=== PATIENT | male | born 1950 | race Caucasian/White ===

== ENCOUNTER 2018-06-09 14:01 | Outpatient (CLI) | payer MEDICARE, MEDICAID ==
[2018-06-09 18:39] LABS: BASOPHILS # (AUTO) 0.1 10^3/uL (0.0-0.1); BASOPHILS % (AUTO) 0.9 %; EOSINOPHILS # (AUTO) 0.3 10^3/uL (0.0-0.7); EOSINOPHILS % (AUTO) 3.8 %; HGB - HEMOGLOBIN 15.3 g/dL (14.0-18.0); LYMPHOCYTES # (AUTO) 1.4 10^3/uL (1.5-3.5); LYMPHOCYTES % (AUTO) 16.7 %; MEAN CORPUSCULAR HEMOGLOBIN 31.8 pg (27.0-31.0); MEAN CORPUSCULAR HGB CONC 33.5 g/dL (32.0-36.0); MEAN CORPUSCULAR VOLUME 95.1 fL (80.0-94.0); MEAN PLATELET VOLUME 8.5 fL (7.4-11.4); MONOCYTES # (AUTO) 0.7 10^3/uL (0.0-1.0); MONOCYTES % (AUTO) 8.3 %; NEUTROPHILS # (AUTO) 5.8 10^3/uL (1.5-6.6); NEUTROPHILS % (AUTO) 70.3 %; PLT - PLATELET COUNT 226 10^3/uL (130-450); RED BLOOD COUNT 4.81 10^6/uL (4.70-6.10); RED CELL DISTRIBUTION WIDTH 13.2 % (12.0-15.0); WHITE BLOOD COUNT 8.3 x10^3/uL (4.8-10.8)
[2018-06-09 18:42] LABS: BILIRUBIN,URINE NEGATIVE (NEGATIVE); GLUCOSE, URINE (UA) NEGATIVE (NEGATIVE); KETONES,URINE (UA) NEGATIVE (NEGATIVE); LEUKOCYTE ESTERASE, URINE TRACE (NEGATIVE); NITRITE,URINE NEGATIVE (NEGATIVE); OCCULT BLOOD,URINE NEGATIVE (NEGATIVE); PROTEIN,URINE NEGATIVE (NEGATIVE); UROBILINOGEN,URINE 0.2 (NORMAL) E.U./dL (NORMAL)
[2018-06-09 18:51] LABS: HB2 TOTAL 16.6 g/dL; HEMOGLOBIN A1C 0.59 g/dL; HEMOGLOBIN A1C % 5.4 % (4.6-6.2)
[2018-06-09 18:55] LABS: CLARITY,URINE CLEAR (CLEAR)
[2018-06-09 18:56] LABS: % IRON SATURATION 22 % (20-50); ALBUMIN 3.9 g/dL (3.2-5.5); ALBUMIN/GLOBULIN RATIO 1.3 (1.0-2.2); ALKALINE PHOSPHATASE 67 IU/L (42-121); ALT ALANINE AMINOTRANSFERASE 23 IU/L (10-60); AST ASPARTATE AMINOTRANSFERASE 24 IU/L (10-42); BACTERIA,URINE None Seen /HPF (None Seen); BILIRUBIN,TOTAL 0.7 mg/dL (0.2-1.0); BUN - BLOOD UREA NITROGEN 25 mg/dL (6-20); CALCIUM 9.1 mg/dL (8.5-10.3); CARBON DIOXIDE - CO2 24 mmol/L (21-32); CHLORIDE 102 mmol/L (101-111); CHOL/HDL RATIO 3.9 (<5.0); CHOLESTEROL 190 mg/dL; GFR - MDRD 74 (>89); GLUCOSE 141 mg/dL (70-100); HDL CHOLESTEROL 49 mg/dL; IRON 69 ug/dL (45-182); LDL CHOLESTEROL,CALCULATED 83 mg/dL; LDL/HDL RATIO 1.7 (<3.6); RBC,URINE None Seen /HPF (0-5); SODIUM 133 mmol/L (135-145); SQUAMOUS EPITHELIAL CELL,UR NONE SEEN (<= Few); TOTAL IRON BINDING CAPACITY 318 ug/dL (250-450); TOTAL PROTEIN 6.9 g/dL (6.7-8.2); TRANSFERRIN 227 mg/dL (180-329); VLDL CHOLESTEROL 58 mg/dL
== END 2018-06-09 14:02 | disposition home or self-care (01) ==
LOC: LAB.F 14:01
PROVIDERS: ATTEND Nurse Practitioner
DX: I10 Essential (primary) hypertension (principal); Z13.89 Encounter for screening for other disorder; R31.9 Hematuria, unspecified; R53.83 Other fatigue; N40.1 Benign prostatic hyperplasia with lower urinary tract symptoms; Z13.1 Encounter for screening for diabetes mellitus; Z79.899 Other long term (current) drug therapy
CPT/HCPCS: 36415; 80053; 80061; 81001; 81599; 82306; 82607; 83036; 83540; 83721; 84153; 84466; 85025

== ENCOUNTER 2019-01-25 11:00 | Outpatient (CLI) | payer MEDICARE, MEDICAID | END 2019-01-25 23:59 | disposition home or self-care (01) | LOC: LAB.R 11:00 | PROVIDERS: ATTEND Internal Medicine | DX: N30.00 Acute cystitis without hematuria (principal) | CPT/HCPCS: 87086 ==

== ENCOUNTER 2020-01-10 14:01 | Outpatient (CLI) | payer MEDICARE, MEDICAID ==
[2020-01-10 20:31] LABS: BASOPHILS # (AUTO) 0.1 10^3/uL (0.0-0.1); BASOPHILS % (AUTO) 0.8 %; EOSINOPHILS # (AUTO) 0.3 10^3/uL (0.0-0.7); EOSINOPHILS % (AUTO) 4.2 %; LYMPHOCYTES # (AUTO) 1.8 10^3/uL (1.5-3.5); LYMPHOCYTES % (AUTO) 22.7 %; MEAN CORPUSCULAR HEMOGLOBIN 31.1 pg (27.0-31.0); MEAN CORPUSCULAR HGB CONC 31.9 g/dL (32.0-36.0); MEAN CORPUSCULAR VOLUME 97.5 fL (80.0-94.0); MEAN PLATELET VOLUME 10.3 fL (7.4-11.4); MONOCYTES # (AUTO) 0.7 10^3/uL (0.0-1.0); MONOCYTES % (AUTO) 8.8 %; PLT - PLATELET COUNT 233 10^3/uL (130-450); RED BLOOD COUNT 4.82 10^6/uL (4.70-6.10); RED CELL DISTRIBUTION WIDTH 12.8 % (12.0-15.0); WHITE BLOOD COUNT 7.9 x10^3/uL (4.8-10.8)
== END 2020-01-10 14:02 | disposition home or self-care (01) ==
LOC: LAB.S 14:01
PROVIDERS: ATTEND Internal Medicine
DX: N41.9 Inflammatory disease of prostate, unspecified (principal); R31.9 Hematuria, unspecified
CPT/HCPCS: 36415; 84153; 85025

== ENCOUNTER 2020-02-01 10:08 | Outpatient (CLI) | payer MEDICARE, MEDICAID | END 2020-02-01 10:09 | disposition home or self-care (01) | LOC: LAB.S 10:08 | PROVIDERS: ATTEND Internal Medicine | DX: N41.9 Inflammatory disease of prostate, unspecified (principal) | CPT/HCPCS: 36415; 84153 ==

== ENCOUNTER 2020-03-06 10:57 | Outpatient (CLI) | payer MEDICARE, MEDICAID ==
[2020-03-06] MEDS ORDERED: IOVERSOL 320 100 ML VIAL IVP ONE ×2 (11:13→12:19)
--- NOTE | 2020-03-06 15:11 | CT Report ---
PROCEDURE: IVP INDICATIONS: HEMATURIA CONTRAST: IV CONTRAST: Optiray 320 ml: 140 PO CONTRAST: *NO PO CONTRAST TECHNIQUE: After the administration of intravenous contrast, 5 mm thick sections acquired from the diaphragms to the symphysis. 5 mm thick coronal and sagittal reformats were acquired. For radiation dose reducti on, the following was used: automated exposure control, adjustment of mA and/or kV according to oscar ent size. COMPARISON: None. FINDINGS: Image quality: Excellent. Lung bases: Lung bases are clear. Heart size is normal. Urinary system: Both kidneys are normal in size and enhancement. Multiple benign bilateral renal cy sts. Findings include a 2 separate hyperdense left renal cyst. Contrast-filled renal calyces are norm al in morphology. Contrast filled portions of both ureters are normal in caliber. Bladder is quite d istended. Mild bladder wall thickening. Markedly enlarged, multinodular prostate, with the basilar im pression on the bladder. Solid organs: Liver and spleen are normal in size and enhancement. Gallbladder is unremarkable. Bi liary system is non dilated. Pancreas enhances normally. No adrenal nodules. Peritoneum and bowel: Bowel loops demonstrate normal wall thickness and caliber. No free fluid or a ir. Nodes and vessels: No retroperitoneal or mesenteric adenopathy by size criteria. Marked enlargement of the infrarenal abdominal aorta, with an aneurysm measuring 8.5 x 7.7 cm, with large associated thr ombus. SMA and celiac are patent. RYAN is probably patent. There is a short neck between the lowest re nal artery and the aneurysm. Abdominal wall: No ventral hernias. Pelvis: No pathologic free pelvic fluid. Right inguinal hernia containing fat. No inguinal adenopath y. Bones: No suspicious bony lesions. No vertebral body compression fractures. Bilateral L5 pars defec ts. Grade 1 anterolisthesis of L5 on S1. Severe bilateral L5-S1 foraminal narrowing. Canal stenosis a t L3-L4 and L4-L5. IMPRESSION: 1. Markedly enlarged, surgical size aortic aneurysm, measuring 8.5 cm maximum diameter. This aneurysm may be treatable by an endovascular. Recommend vascular surgical consultation. 2. No findings suspicious for malignancy. No renal stones or ureteral stones or hydronephrosis. 3. Markedly enlarged prostate with extensive nodularity, resulting in bladder outlet obstruction, sara dder distention, and mild bladder wall thickening. Reviewed by: Amari Wright MD on 03/06/2020 3:10 PM PST Approved by: Amari Wright MD on 03/06/2020 3:10 PM PST Station ID: [id number]
== END 2020-03-06 10:58 | disposition home or self-care (01) ==
LOC: DI 10:57
PROVIDERS: ATTEND Internal Medicine
DX: I71.4 Abdominal aortic aneurysm, without rupture (principal); N40.0 Benign prostatic hyperplasia without lower urinary tract symptoms; N40.2 Nodular prostate without lower urinary tract symptoms; R31.9 Hematuria, unspecified
CPT/HCPCS: 74178; Q9967; 36415; 80048

== ENCOUNTER 2020-03-06 11:27 | Outpatient (CLI) | payer MEDICARE, MEDICAID ==
[2020-03-06 11:57] LABS: CALCIUM 9.6 mg/dL (8.5-10.3); CREATININE 1.2 mg/dL (0.6-1.2)
== END 2020-03-06 11:28 | disposition home or self-care (01) ==
LOC: LAB 11:27
PROVIDERS: ATTEND Internal Medicine
DX: R31.9 Hematuria, unspecified (principal)
CPT/HCPCS: 36415; 80048

== ENCOUNTER 2020-04-30 16:39 | Outpatient (CLI) | payer MEDICARE, MEDICAID ==
[2020-04-30 19:48] LABS: BASOPHILS % (AUTO) 0.1 %; MEAN CORPUSCULAR HEMOGLOBIN 31.9 pg (27.0-31.0); MEAN CORPUSCULAR HGB CONC 33.3 g/dL (32.0-36.0); MEAN CORPUSCULAR VOLUME 95.6 fL (80.0-94.0); MEAN PLATELET VOLUME 9.2 fL (7.4-11.4); MONOCYTES % (AUTO) 10.4 %; NEUTROPHILS % (AUTO) 77.5 %; PLT - PLATELET COUNT 467 10^3/uL (130-450); RED BLOOD COUNT 2.04 10^6/uL (4.70-6.10); RED CELL DISTRIBUTION WIDTH 13.7 % (12.0-15.0); WHITE BLOOD COUNT 19.2 x10^3/uL (4.8-10.8)
[2020-04-30 20:19] LABS: HCT - HEMATOCRIT 19.5 % (42.0-52.0); HGB - HEMOGLOBIN 6.5 g/dL (14.0-18.0)
[2020-04-30 20:21] LABS: ABNORMAL LYMPHS % (MANUAL) 0 %
[2020-04-30 20:43] LABS: BAND NEUTROPHILS % (MANUAL) 2 %; LYMPHOCYTES # (MANUAL) 2.1 10^3/uL (1.5-3.5); LYMPHOCYTES % (MANUAL) 11 %; MONOCYTES # (MANUAL) 1.2 10^3/uL (0.0-1.0); NEUTROPHILS # (MANUAL) 15.9 10^3/uL (1.5-6.6); PLATELET MORPHOLOGY NORMAL APPEARANCE (NORMAL); RBC MORPHOLOGY (MULTIPLE) 2+ HYPOCHROMASIA (NORMAL)
[2020-04-30 20:44] LABS: DIFFERENTIAL COMMENT MANUAL DIFFERENTIAL; PLATELET ESTIMATE, MANUAL INCREASED (>450,000) (NORMAL)
== END 2020-04-30 16:40 | disposition home or self-care (01) ==
LOC: LAB.S 16:39
PROVIDERS: ATTEND Internal Medicine
DX: R19.5 Other fecal abnormalities (principal)
CPT/HCPCS: 36415; 85025

== ENCOUNTER 2020-04-30 21:26 | Inpatient (IN) | payer MEDICARE, MEDICAID ==
--- NOTE | 2020-04-30 21:31 | ED Physician Documentation ---
PD HPI GI BLEED - Stated complaint Stated Complaint: PRIOR SURGERY LOSS OF BLOOD - History of Present Illness Timing - onset: How many weeks ago (2) Timing - duration: Weeks (2) Timing - details: Abrupt onset (He noted onset of dark stool shortly after an aortic endovascular graft stenting at [facility] 2 and half weeks ago. He has had 2 weeks of dark stool and general weakness. Seen in the office today with a very low blood count and guaiac positive stool.), Still present Associated symptoms: Black/tarry stool, Loss of appetite. No: Vomiting, Coffee ground emesis, Diarrhea, Abdominal pain, Chest pain, Near syncope / syncope Contributing factors: No: Sick contact, Bad food, Aspirin use (but is on Plvix the past 2 1/2 weeks.), NSAID use Improved by: No: Eating Worsened by: No: Eating Similar symptoms before: Has not had sx before Recently seen: Surgery (Outpatient procedure at [facility] by Dr. Wilkins, vascular surgery, with endovascular stent grafting of a abdominal aneurysm without complications.) Review of Systems Constitutional: denies: Fever, Chills Nose: denies: Rhinorrhea / runny nose, Congestion Throat: denies: Sore throat Cardiac: reports: Pedal edema (mild at times). denies: Chest pain / pressure, Palpitations, Calf pain GI: reports: Nausea. denies: Abdominal Pain, Vomiting, Diarrhea : reports: Hesitancy, Unable to Void (initially post procedure, and has had garza in place. Has appt with Urology this ThuMay 02.) Musculoskeletal: denies: Neck pain, Back pain, Extremity swelling Neurologic: reports: Generalized weakness. denies: Focal weakness, Numbness, Near syncope, Altered mental status, Headache PD PAST MEDICAL HISTORY - Past Medical History Cardiovascular: Hypertension, High cholesterol, Other (AAA with recent endovasc ular stent graft) Respiratory: None Neuro: None Endocrine/Autoimmune: None - Past Surgical History Cardiovascular: AAA - Allergies Allergies/Adverse Reactions: Allergies Allergy/AdvReac Type Severity Reaction Status Date / Time No Known Drug Allergies Allergy Verified 04/30/20 22:33 - Living Situation Living Situation: reports: With spouse/s.o. Living Arrangement: reports: At home PD ED PE NORMAL - Vitals Vital signs reviewed: Yes - General General: Alert and oriented X 3, Well developed/nourished, Other (no distress. Pale color. ) - HEENT HEENT: Pharynx benign. No: Moist mucous membranes - Neck Neck: Supple, no meningeal sign, No adenopathy - Cardiac Cardiac: RRR, No murmur - Respiratory Respiratory: Clear bilaterally - Abdomen Abdomen: Normal bowel sounds, Soft, Non distended, No organomegaly, Other (inguinal areas bilaterally with bandaging. No bruising, local swelling, nor redness. ) - Male Male : Other (garza in place to leg bag/ appears draining okay. ) - Back Back: No CVA TTP - Derm Derm: No: Normal color - Extremities Extremities: No tenderness to palpate, Normal ROM s pain, No edema, No calf tenderness / cord - Neuro Neuro: Alert and oriented X 3, No motor deficit, Normal speech Eye Opening: Spontaneous Motor: Obeys Commands Verbal: Oriented GCS Score: 15 Results - Vitals Vitals: Vital Signs - 24 hr 04/30/20 04/30/20 04/30/20 21:33 23:25 23:35 Temperature 36.5 C 37.2 C 37.1 C Heart Rate 88 78 80 Respiratory 18 16 16 Rate Blood Pressure 109/51 L 117/60 120/56 L O2 Saturation 99 04/30/20 23:44 Temperature 37.0 C Heart Rate 80 Respiratory 16 Rate Blood Pressure 114/70 O2 Saturation Oxygen O2 Source Room air - Labs Labs: Laboratory Tests 04/30/20 04/30/20 04/30/20 16:45 22:06 22:06 WBC 15.2 H RBC 1.97 L Hgb 6.1 L* Hct 18.5 L* MCV 93.9 MCH 31.0 MCHC 33.0 RDW 13.7 Plt Count 336 MPV 8.4 Neut # (Auto) 12.8 H Lymph # (Auto) 1.1 L Cloud # (Auto) 1.1 H Eos # (Auto) 0.0 Baso # (Auto) 0.0 Absolute Nucleated RBC 0.00 Nucleated RBC % 0.0 PT INR APTT Sodium Potassium Chloride Carbon Dioxide Anion Gap BUN Creatinine Estimated GFR (MDRD) Glucose Calcium Magnesium Total Bilirubin AST ALT Alkaline Phosphatase B-Natriuretic Peptide Total Protein Albumin Globulin Albumin/Globulin Ratio Lipase Blood Type O POSITIVE Blood Type Recheck O POSITIVE Antibody Screen NEGATIVE Crossmatch IS Only See Detail 04/30/20 04/30/20 04/30/20 22:06 22:06 22:06 WBC RBC Hgb Hct MCV MCH MCHC RDW Plt Count MPV Neut # (Auto) Lymph # (Auto) Cloud # (Auto) Eos # (Auto) Baso # (Auto) Absolute Nucleated RBC Nucleated RBC % PT 12.4 INR 1.1 APTT 25.2 Sodium 120 L* Potassium 5.8 H Chloride 87 L Carbon Dioxide 21 Anion Gap 12.0 BUN 55 H Creatinine 1.6 H Estimated GFR (MDRD) 43 L Glucose 148 H Calcium 10.0 Magnesium 2.2 Total Bilirubin 0.4 AST 20 ALT 41 Alkaline Phosphatase 80 B-Natriuretic Peptide 21 Total Protein 5.9 L Albumin 3.0 L Globulin 2.9 Albumin/Globulin Ratio 1.0 Lipase 40 Blood Type Blood Type Recheck Antibody Screen Crossmatch IS Only - Rads (name of study) abd/pelvic angio Radiology: Prelim report reviewed (AAA unchanged size. Endovascular stent graft in place without any signs of leakage. ), See rad report PD MEDICAL DECISION MAKING - ED course Complexity details: considered differential, d/w patient, d/w PMD (Dr. Leslie called from [facility] and said he did guaiac in office today that was positive. ), d/w acquisition consultant (Dr. Magallon, non destructive testing inspector for Dr. Wilkins, who said the Plavix is not necessary post this procedure, and is okay to discontinue the Plavix in lieu of UGI bleed. ) Departure - Departure Disposition: 66 [facility] DC/Xfer Clinical Impression: Acute anemia, Acute renal insufficiency, Dehydration, Hyponatremia GI bleeding Qualifiers: GI bleed type/associated pathology: melena Qualified Code(s): K92.1 - Melena Condition: Stable Record reviewed to determine appropriate education?: Yes
[2020-04-30] MEDS ORDERED: SODIUM CHLORIDE 0.9% 1,000 ML IV STA (22:05)
[2020-04-30] MEDS ORDERED: PANTOPRAZOLE 40 MG VIAL IVP STA (22:07)
[2020-04-30 22:18] LABS: BASOPHILS % (AUTO) 0.1 %; LYMPHOCYTES # (AUTO) 1.1 10^3/uL (1.5-3.5); MEAN CORPUSCULAR VOLUME 93.9 fL (80.0-94.0); MEAN PLATELET VOLUME 8.4 fL (7.4-11.4); MONOCYTES # (AUTO) 1.1 10^3/uL (0.0-1.0); NEUTROPHILS # (AUTO) 12.8 10^3/uL (1.5-6.6); NEUTROPHILS % (AUTO) 83.9 %; PLT - PLATELET COUNT 336 10^3/uL (130-450); RED BLOOD COUNT 1.97 10^6/uL (4.70-6.10); RED CELL DISTRIBUTION WIDTH 13.7 % (12.0-15.0); WHITE BLOOD COUNT 15.2 x10^3/uL (4.8-10.8)
[2020-04-30 22:21] LABS: HCT - HEMATOCRIT 18.5 % (42.0-52.0); HGB - HEMOGLOBIN 6.1 g/dL (14.0-18.0)
[2020-04-30] MEDS ORDERED: IOVERSOL 320 100 ML VIAL IVP ONE ×2 (22:31→22:55)
[2020-04-30 22:33] LABS: BILIRUBIN,TOTAL 0.4 mg/dL (0.2-1.0); CREATININE 1.6 mg/dL (0.6-1.2); INR 1.1 (0.8-1.2); MAGNESIUM 2.2 mg/dL (1.7-2.8); POTASSIUM 5.8 mmol/L (3.5-5.0); PT - PROTHROMBIN TIME 12.4 secs (9.9-12.6); TOTAL PROTEIN 5.9 g/dL (6.7-8.2)
[2020-04-30 22:40] LABS: PARTIAL THROMBOPLASTIN TIME 25.2 secs (24.9-33.3)
[2020-04-30] MEDS ORDERED: SODIUM BICARBONATE ABBOJECT 4.2% 5 MEQ/10 ML SYRINGE IVP STA (22:40)
[2020-04-30] MEDS ORDERED: SODIUM BICARBONATE ABBOJECT 50 MEQ/50 ML SYRINGE IVP STA (22:48)
[2020-05-01] MEDS ORDERED: SODIUM CHLORIDE FLUSH 0.9% 10 ML SYRINGE IVP PRN (00:12)
[2020-05-01] MEDS ORDERED: ONDANSETRON 4 MG/2 ML VIAL IVP PRN (00:12)
--- NOTE | 2020-05-01 00:26 | HISTORY & PHYSICAL EXAMINATION ---
Chief Complaint - Chief Complaint Chief Complaint: dark tarry stools, anemia History of Present Illness - Admitted From Admitted From:: [facility] ED - History Obtained From Records Reviewed: yes History obtained from: patient - History of Present Illness HPI Comment/Other: Patient is a 70-year-old male with medical history significant for hypertension, GERD, abdominal aortic aneurysm status post repair, BPH and alcohol abuse who presented to the ED with anemia. He underwent a AAA repair about 2-1/2 weeks ago and has been on Plavix since then. He saw his primary care physician today because he has been progressively weak and dizzy for the past 2-1/2 weeks. He has also been having dark stools in this time. Furthermore he reports unsteady gait, dyspnea, nausea and vomiting. Routine labs done at his primary care physician's office showed a hemoglobin of 6.5. He was brought to the ED by a friend. Repeat hemoglobin in the ED was 6.1. Patient systolic blood pressure is 100. He has been taking and increasingly amount of Rolaids for heartburn. The patient drinks 4-5 beers daily. He denies ever having gone through alcohol withdrawal. He also denies any history of GI bleed. As a result of his symptoms he was presented for admission for further treatment. History - Past Medical History Cardiovascular: reports: Hypertension, High cholesterol, Other (AAA s/p repair) GI: reports: GERD : reports: Benign prostate hypertrophy Psych: reports: Other (Alcohol abuse) MRSA Hx?: No - Past Surgical History General: reports: Appendectomy, Other (Right Inguinal hernia repair) Cardiovascular: reports: AAA - Family & Social History Family History: Father: CAD, [place] Living arrangement: At home Living Situation: With spouse/s.o. Social History Notes: Patient quit smoking cigarettes 6 to 7 years ago. He had a 1 pack/day history for 30 years. He drinks 4-5 beers daily. He uses marijuana. - POLST Patient has POLST: No POLST Status: Full Code Meds/Allgy - Allergies Allergies/Adverse Reactions: Allergies Allergy/AdvReac Type Severity Reaction Status Date / Time No Known Drug Allergies Allergy Verified 04/30/20 22:33 Review of Systems - Constitutional Constitutional: reports: Fatigue, Chills, Weakness. denies: Fever - Eyes Eyes: denies: Pain, Dipolpia - Ears, Nose & Throat Ears, Nose & Throat: denies: Ear pain, Sore throat - Cardiovascular Cariovascular: reports: Lightheadedness. denies: Irregular heart rate, Palpitations, Chest pain, Edema, Syncope - Respiratory Respiratory: reports: SOB at rest, SOB with exertion. denies: Cough, Sputum production, Wheezing, Snoring - Gastrointestinal Gastrointestinal: reports: Black stools, Nausea, Vomiting. denies: Abdominal pain, Abdominal distention, Constipation, Diarrhea, Rectal bleeding, Bloody stools, Usama blood emesis, Coffee grounds emesis - Genitourinary Genitourinary: denies: Dysuria, Frequency, Urgency, Hematuria - Musculoskeletal Musculoskeletal: denies: Muscle pain, Back pain, Muscle aches, Stiffness - Integumentary Integumentary: denies: Rash, Pruritis, Lesions - Neurological Neurological: reports: General weakness, Dizziness. denies: Focal weakness, He adache - Psychiatric Psychiatric: denies: Depression, Anxiety - Endocrine Endocrine: denies: Polyuria, Polydypsia - Hematologic/Lymphatic Hematologic/Lymphatic: reports: Anemia. denies: Bruising, Petechiae Prior Level of Functionality: Patient is independent of activities of daily living Exam - Vital Signs Vital Signs: Vital Signs x48h Temp Pulse Resp BP Pulse Ox 04/30/20 23:44 37.0 C 80 16 114/70 04/30/20 23:35 37.1 C 80 16 120/56 L 04/30/20 23:25 37.2 C 78 16 117/60 04/30/20 21:33 36.5 C 88 18 109/51 L 99 - Physical Exam General Appearance: positive: No acute distress, Alert Eyes Bilateral: positive: PERRL, EOMI ENT: positive: No signs of dehydration Neck: positive: No JVD, Trachea midline Respiratory: positive: Chest non-tender, No respiratory distress, Breath sounds nml. negative: Wheezes, Rales, Rhonchi Cardiovascular: positive: Regular rate & rhythm, No murmur Abdomen: positive: Non-tender, No organomegaly, Nml bowel sounds, No distention. negative: Guarding, Rebound Rectal: positive: Non-tender, Black stool Skin: positive: No rash, Warm, Dry, Pallor Extremities: positive: Non-tender, Full ROM, Nml appearance, No pedal edema Neurologic/Psychiatric: positive: Oriented x3, Mood/affect nml Conclusion/Plan - Problem List (1) Acute anemia Conclusion/Plan: Likely secondary to upper GI bleed related to alcohol abuse. Patient drinks 4-5 beers daily.. Patient reported dark tarry stools. Hemoglobin is 6.1. Patient made n.p.o. except for meds. IV hydration with normal saline at 100 mils per hour. 2 units of packed red blood cells typed and crossed and to be transfused. Serial H&H q. 8 hours x 2. Protonix 40 mg IV twice daily. General surgery consult for EGD. (2) GI bleeding Conclusion/Plan: Likely upper. Related to alcohol abuse. Hemoglobin is 6.1. Patient made n.p.o. except for meds. IV hydration with normal saline at 100 mils per hour. 2 units of packed red blood cells typed and crossed and to be transfused. Serial H&H q. 8 hours x 2. Protonix 40 mg IV twice daily. General surgery consult for EGD. Qualifiers: GI bleed type/associated pathology: melena Qualified Code(s): K92.1 - Melena (3) Acute renal insufficiency Conclusion/Plan: 1.6 with eGFR of 43. Possibly due to dehydration. We will hold patient's lisinopril for now. Patient receiving IV hydration with normal saline at 100 mils per hour. Anticipating improvement. Will recheck morning labs. (4) AAA (abdominal aortic aneurysm) Conclusion/Plan: Patient underwent stent graft at [facility] to 1/2 weeks ago. The patient has been on Plavix since. A call has been placed to the vascular surgical team with recommendations regarding Plavix in the current setting of GI bleed. Awaiting input. CT angiogram of the abdomen pelvis was unremarkable. There was no leak from the graft. (5) Leukocytosis Conclusion/Plan: Suspect this is reactive. We will monitor. If patient becomes febrile, hypotensive or if leukocytosis persists, will consider blood cultures and possibly antibiotics. (6) Hyponatremia Conclusion/Plan: Differential includes: hypovolemic hyponatremia vs beer potomania. Initial sodium was 120. Repeated sodium 2 hours later was 116. Patient receiving IV hydration with normal saline at 100ml/hr. We will monitor BMP. (7) Alcohol abuse Conclusion/Plan: Patient drinks 4-5 beers daily. His last drink was Thursday04/29/20. [facility] protocol initiated. Librium 25 mg p.o. 3 times daily. Patient is on Protonix 40 mg IV twice daily. Thiamine and multivitamins. (8) BPH (benign prostatic hyperplasia) Conclusion/Plan: On Terazosin and finasteride. Will resume once verified. (9) Hyperlipidemia Conclusion/Plan: Will resume patient's atorvastatin once verified. (10) Hypertension Conclusion/Plan: Patient's systolic blood pressure is currently on the low end of normal. We will hold patient's lisinopril. (11) GERD (gastroesophageal reflux disease) Conclusion/Plan: Protonix 40 mg IV twice daily ordered. We will also order Tums. - Lab Results Fish Bones: 04/30/20 22:06 05/01/20 00:31 Core Measures - Anticipated LOS I expect patient to be DC'd or transferred within 96 hours.: Yes - DVT/VTE - Prophylaxis VTE/DVT Device ordered at admit?: Yes VTE/DVT Prophylaxis med ordered at admit?: No
[2020-05-01 00:45] LABS: CALCIUM 8.9 mg/dL (8.5-10.3); CREATININE 1.4 mg/dL (0.6-1.2); POTASSIUM 5.3 mmol/L (3.5-5.0)
[2020-05-01] MEDS: SODIUM CHLORIDE FLUSH 0.9% 10 ML SYRINGE IVP SCH ×4 (01:31→23:56)
[2020-05-01] MEDS ORDERED: CALCIUM CARBONATE CHEW 500 MG TABLET PO PRN (01:49)
[2020-05-01] MEDS ORDERED: LORazepam 2 MG/ML VIAL IVP PRN (01:51)
[2020-05-01] MEDS ORDERED: MAGNESIUM SULFATE 2 GRAM 2 GM/50 ML BAG IV ONE (01:51)
[2020-05-01] MEDS ORDERED: chlordiazePOXIDE 25 MG CAPSULE PO SCH (02:00)
[2020-05-01 02:30] LABS: BASOPHILS % (AUTO) 0.1 %; LYMPHOCYTES # (AUTO) 1.3 10^3/uL (1.5-3.5); LYMPHOCYTES % (AUTO) 10.1 %; MEAN CORPUSCULAR HEMOGLOBIN 31.6 pg (27.0-31.0); MEAN CORPUSCULAR HGB CONC 33.8 g/dL (32.0-36.0); MEAN CORPUSCULAR VOLUME 93.4 fL (80.0-94.0); MEAN PLATELET VOLUME 8.4 fL (7.4-11.4); MONOCYTES % (AUTO) 7.7 %; NEUTROPHILS # (AUTO) 10.5 10^3/uL (1.5-6.6); NEUTROPHILS % (AUTO) 80.4 %; PLT - PLATELET COUNT 288 10^3/uL (130-450); RED BLOOD COUNT 2.12 10^6/uL (4.70-6.10); RED CELL DISTRIBUTION WIDTH 13.8 % (12.0-15.0)
[2020-05-01 02:32] LABS: HGB - HEMOGLOBIN 6.7 g/dL (14.0-18.0)
[2020-05-01 02:33] LABS: HCT - HEMATOCRIT 19.8 % (42.0-52.0)
[2020-05-01 04:13] LABS: B. PARAPERTUSSIS- RESP PCR PAN NOT DETECTED; B. PERTUSSIS- RESP PCR PANEL NOT DETECTED; C. PNEUMONIAE- RESP PCR PANEL NOT DETECTED; CORONAVIRUS 229E-RESP PCR NOT DETECTED; CORONAVIRUS HKU1-RESP PCR NOT DETECTED; CORONAVIRUS NL63-RESP PCR NOT DETECTED; CORONAVIRUS OC43-RESP PCR NOT DETECTED; HUMAN METAPNEUMOVIRUS NOT DETECTED; INFLUENZA A- RESP PCR PANEL NOT DETECTED; INFLUENZA B - RESP PCR PANEL NOT DETECTED; M. PNEUMONIAE- RESP PCR PANEL NOT DETECTED; PARAINFLUENZA VIRUS 1 NOT DETECTED; PARAINFLUENZA VIRUS 2 NOT DETECTED; PARAINFLUENZA VIRUS 3 NOT DETECTED; PARAINFLUENZA VIRUS 4 NOT DETECTED; RHINOVIRUS/ENTEROVIRUS NOT DETECTED; RSV- RESP PCR PANEL NOT DETECTED; SARS-CoV-2 -RESP PCR PANEL NOT DETECTED
[2020-05-01] MEDS: SODIUM CHLORIDE 0.9% 1,000 ML IV SCH ×2 (05:37→16:26)
[2020-05-01 07:57] LABS: CALCIUM 8.8 mg/dL (8.5-10.3); CREATININE 1.3 mg/dL (0.6-1.2); POTASSIUM 4.8 mmol/L (3.5-5.0)
[2020-05-01 08:20] LABS: FOLATE 16.46 ng/mL (5.90 - >24.8)
--- NOTE | 2020-05-01 08:42 | CT Report ---
PROCEDURE: ANGIO ABDOMEN/PELVIS W INDICATIONS: GI bleeding x 2 wks s/p AAA stenting CONTRAST: IV CONTRAST: Optiray 320 ml: 100 PO CONTRAST: *NO PO CONTRAST TECHNIQUE: After the administration of intravenous contrast, 2 and 5 mm sections acquired from the diaphragm to the iliac crests. 3-dimensional maximum intensity projection (MIP) coronal and sagittal reformats, a nd/or 3-dimensional volume rendering reformatting was then performed. For radiation dose reduction, the following was used: automated exposure control, adjustment of mA and/or kV according to patient size. COMPARISON: CT IVP 03/06/2020. FINDINGS: Image quality: Excellent. Extravascular tissues: Lung bases are clear. Heart size is normal. Liver and spleen are normal in size and enhancement. Gallbladder appears contracted Biliary system is non dilated. Pancreas enhan gabriella normally. No adrenal nodules. Kidneys are normal in size and enhancement, without hydronephrosi s. Note is again made of multiple renal cortical cyst. Non-opacified bowel loops demonstrate normal w all thickness and caliber. No free fluid or air. No retroperitoneal or mesenteric adenopathy. No v entral hernias. No suspicious bony abnormalities. No vertebral body compression fractures. A Landa catheter is centrally positioned within the bladder, the prostate appears moderately enlarged, the b ladder is nearly drained. At each common femoral artery origin area ovoid low density structures are seen consistent with postangiographic bilateral groin hematomas. Pseudoaneurysm formation is not seen in this area. Abdominal aorta: Aneurysmal dilatation of the mid to distal aorta has been treated by an aortobiilia c stent graft, and at the upper margin of the stent graft note is made of bilateral renal artery sten ts, which appear patent. There is no sign of and a stent graft leak into the te-moak aortic lumen whic h is thrombosed, with patent and flowing channel containing aortic intact flow extending into the com mon iliac arteries bilaterally. There is a possible short segment dissection within the left proximal external iliac artery just below its bifurcation, best seen on image [id number]. Mesenteric arteries: The celiac axis and superior mesenteric arteries appear patent, and the inferio r mesenteric artery is not visualized. Renal arteries: Patent, with stent at the proximal renal arteries bilaterally, not previously presen t on prior CT scanning. IMPRESSION: Source of GI bleeding is not identified. The superior mesenteric artery and the celiac axis each are patent. Postoperative changes of aortobiiliac stent graft. Bilateral renal artery stents now are present, als o a new finding. Bilateral groin hematomas adjacent to the common femoral arteries, without evidence of pseudoaneurysm formation. Short segment (approximately 1 cm-1.5 cm) proximal external iliac artery dissection is suspected, without adjacent hematoma or focal aneurysm. Reviewed by: Gama Lujan MD on 05/01/2020 8:40 AM [facility] Approved by: Gama Lujan MD on 05/01/2020 8:40 AM PST Station ID: [id number]
[2020-05-01] MEDS: PANTOPRAZOLE 40 MG VIAL IVP SCH ×2 (10:09→20:08)
[2020-05-01] MEDS: THIAMINE 100 MG TABLET PO SCH (10:09)
[2020-05-01] MEDS: PRENATAL VITAMIN TABLET PO SCH (10:09)
[2020-05-01] MEDS: chlordiazePOXIDE 25 MG CAPSULE PO SCH ×2 (10:12→17:32)
[2020-05-01 10:35] LABS: BASOPHILS % (AUTO) 0.1 %; HCT - HEMATOCRIT 21.5 % (42.0-52.0); HGB - HEMOGLOBIN 7.3 g/dL (14.0-18.0); LYMPHOCYTES # (AUTO) 0.9 10^3/uL (1.5-3.5); LYMPHOCYTES % (AUTO) 8.4 %; MEAN CORPUSCULAR HEMOGLOBIN 31.3 pg (27.0-31.0); MEAN CORPUSCULAR VOLUME 92.3 fL (80.0-94.0); MEAN PLATELET VOLUME 8.4 fL (7.4-11.4); MONOCYTES # (AUTO) 0.8 10^3/uL (0.0-1.0); MONOCYTES % (AUTO) 7.7 %; NEUTROPHILS # (AUTO) 8.5 10^3/uL (1.5-6.6); NEUTROPHILS % (AUTO) 82.4 %; PLT - PLATELET COUNT 275 10^3/uL (130-450); RED BLOOD COUNT 2.33 10^6/uL (4.70-6.10); RED CELL DISTRIBUTION WIDTH 14.3 % (12.0-15.0); WHITE BLOOD COUNT 10.4 x10^3/uL (4.8-10.8)
--- NOTE | 2020-05-01 14:27 | ANESTHESIA ---
Pre-Anesthesia VS, & Labs - Diagnosis anemia - Procedure EGD, colonoscopy Vital Signs: Temp Pulse Resp BP Pulse Ox 36.7 C 69 18 103/50 L 95 05/01/20 08:14 05/01/20 08:00 05/01/20 08:00 05/01/20 08:00 05/01/20 08:00 Height: 6 ft 1 in Weight (kg): 89 kg Body Mass Index: 25.9 BMI Classification: Overweight - NPO >8 hours - Lab Results Current Lab Results: Laboratory Tests 05/01/20 10:28: WBC 10.4, RBC 2.33 L, Hgb 7.3 L, Hct 21.5 L, MCV 92.3, MCH 31.3 H, MCHC 34.0, RDW 14.3, Plt Count 275, MPV 8.4, Neut # (Auto) 8.5 H, Lymph # (Auto) 0.9 L, [place] # (Auto) 0.8, Eos # (Auto) 0.0, Baso # (Auto) 0.0, Absolute Nucleated RBC 0.00, Nucleated RBC % 0.0 05/01/20 07:30: Vitamin B12 850, Folate 16.46 05/01/20 07:30: Sodium 123 L, Potassium 4.8, Chloride 92 L, Carbon Dioxide 21, Anion Gap 10.0, BUN 50 H, Creatinine 1.3 H, Estimated GFR (MDRD) 54 L, Glucose 109 H, Calcium 8.8 05/01/20 02:24: WBC 13.0 H, RBC 2.12 L, Hgb 6.7 L*, Hct 19.8 L*, MCV 93.4, MCH 31.6 H, MCHC 33.8, RDW 13.8, Plt Count 288, MPV 8.4, Neut # (Auto) 10.5 H, Lymph # (Auto) 1.3 L, [place] # (Auto) 1.0, Eos # (Auto) 0.0, Baso # (Auto) 0.0, Absolute Nucleated RBC 0.00, Nucleated RBC % 0.0 05/01/20 00:31: Sodium 116 L*, Potassium 5.3 H, Chloride 86 L, Carbon Dioxide 21, Anion Gap 9.0, BUN 52 H, Creatinine 1.4 H, Estimated GFR (MDRD) 50 L, Glucose 131 H, Calcium 8.9 04/30/20 22:06: B-Natriuretic Peptide 21 04/30/20 22:06: PT 12.4, INR 1.1, APTT 25.2 04/30/20 22:06: Sodium 120 L*, Potassium 5.8 H, Chloride 87 L, Carbon Dioxide 21, Anion Gap 12.0, BUN 55 H, Creatinine 1.6 H, Estimated GFR (MDRD) 43 L, Glucose 148 H, Calcium 10.0, Magnesium 2.2, Total Bilirubin 0.4, AST 20, ALT 41, Alkaline Phosphatase 80, Total Protein 5.9 L, Albumin 3.0 L, Globulin 2.9, Albumin/Globulin Ratio 1.0, Lipase 40 04/30/20 22:06: WBC 15.2 H, RBC 1.97 L, Hgb 6.1 L*, Hct 18.5 L*, MCV 93.9, MCH 31.0, MCHC 33.0, RDW 13.7, Plt Count 336, MPV 8.4, Neut # (Auto) 12.8 H, Lymph # (Auto) 1.1 L, [place] # (Auto) 1.1 H, Eos # (Auto) 0.0, Baso # (Auto) 0.0, Absolute Nucleated RBC 0.00, Nucleated RBC % 0.0 04/30/20 22:06: Blood Type O POSITIVE, Antibody Screen NEGATIVE, Crossmatch IS Only See Detail 04/30/20 16:45: Blood Type Recheck O POSITIVE Fish Bones: 05/01/20 10:28 05/01/20 07:30 Home Medications and Allergies Home Medications: Ambulatory Orders Ascorbic Acid Chew [Vitamin C] 1,000 mg PO DAILY 05/01/20 Aspirin Chewable [[place] Aspirin] 81 mg PO DAILY 05/01/20 Atorvastatin [Lipitor] 10 mg PO DAILY 05/01/20 Cholecalciferol (Vitamin D3) [Vitamin D3] 1,000 unit PO DAILY 05/01/20 Clopidogrel [Plavix] 75 mg PO DAILY 05/01/20 Lisinopril [Zestril] 40 mg PO DAILY 05/01/20 Multivit-Min/FA/Lycopen/Lutein [Adults 50 Plus Multivitamin] 1 tab PO DAILY 05/01/20 Omeprazole 40 mg PO BID 05/01/20 Tamsulosin [Flomax] 0.4 mg PO BID 05/01/20 Terazosin HCl [Hytrin] 2 - 4 mg PO QPM 05/01/20 Active Medications Calcium Carbonate/Glycine (Calcium Carbonate Chew 500 Mg Tablet) 500 mg PO TID PRN PRN Reason: Heartburn Chlordiazepoxide HCl (Chlordiazepoxide 25 Mg Capsule) 25 mg PO Q8H [facility] Last Admin: 05/01/20 10:12 Dose: 25 mg Documented by: Sodium Chloride (Normal Saline 0.9%) 1,000 mls @ 100 mls/hr IV .Q10H [facility] Last Infusion: 05/01/20 13:53 Dose: 100 mls/hr Documented by: Lorazepam (Lorazepam 2 Mg/Ml Vial) 1 mg IVP Q30M PRN; Protocol PRN Reason: CIWA >8 Ondansetron HCl (Ondansetron 4 Mg/2 Ml Vial) 4 mg IVP Q6HR PRN PRN Reason: Nausea / Vomiting Pantoprazole Sodium (Pantoprazole 40 Mg Vial) 40 mg IVP BID [facility] Last Admin: 05/01/20 10:09 Dose: 40 mg Documented by: Multivit/Folic Acid/Iron ( Vitamin Tablet) 1 tab PO DAILY [facility] Last Admin: 05/01/20 10:09 Dose: 1 tab Documented by: Sodium Chloride (Sodium Chloride Flush 0.9% 10 Ml Syringe) 10 ml IVP PRN PRN PRN Reason: NEEDED PER PROVIDER ORDERS Sodium Chloride (Sodium Chloride Flush 0.9% 10 Ml Syringe) 10 ml IVP 0100,0900,1700 [facility] Last Admin: 05/01/20 10:09 Dose: 10 ml Documented by: Thiamine HCl (Thiamine 100 Mg Tablet) 100 mg PO DAILY [facility] Last Admin: 05/01/20 10:09 Dose: 100 mg Documented by: Ascorbic Acid Chew [Vitamin C] 1,000 mg PO DAILY 05/01/20 Aspirin Chewable [[place] Aspirin] 81 mg PO DAILY 05/01/20 Atorvastatin [Lipitor] 10 mg PO DAILY 05/01/20 Cholecalciferol (Vitamin D3) [Vitamin D3] 1,000 unit PO DAILY 05/01/20 Clopidogrel [Plavix] 75 mg PO DAILY 05/01/20 Lisinopril [Zestril] 40 mg PO DAILY 05/01/20 Multivit-Min/FA/Lycopen/Lutein [Adults 50 Plus Multivitamin] 1 tab PO DAILY 05/01/20 Omeprazole 40 mg PO BID 05/01/20 Tamsulosin [Flomax] 0.4 mg PO BID 05/01/20 Terazosin HCl [Hytrin] 2 - 4 mg PO QPM 05/01/20 Allergies/Adverse Reactions: Allergies Allergy/AdvReac Type Severity Reaction Status Date / Time No Known Drug Allergies Allergy Verified 04/30/20 22:33 Anes History & Medical History - Anesthetic History Anesthesia Complications: reports: No previous complications - Medical History Cardiovascular: reports: Hypertension, High cholesterol, Other (AAA s/p repair) Pulmonary: reports: None Gastrointestinal: reports: GERD Urinary: reports: Benign prostate hypertrophy Neuro: reports: None Endocrine/Autoimmune: reports: None Smoking Status: Former smoker History of Cancer?: No - Surgical History General: reports: Appendectomy, Other (Right Inguinal hernia repair) Cardiothoracic: reports: AAA Exam General: Alert, Oriented x3 Dental: WNL Mouth Opening: Greater than 4 Fingerbreadths Neck Mobility: Normal Mallampati classification: II Respiratory: Lungs clear Cardiovascular: Regular rate, Normal S1, Normal S2 Plan Anesthesia Type: MAC Consent for Procedure(s) Verified and Reviewed: Yes Code Status: Attempt Resuscitation ASA classification: 2-Mild systemic disease Is this case an emergency?: No
--- NOTE | 2020-05-01 14:30 | PHARMACY PROGRESS NOTE ---
- Best Possible Medication History Admit Date and Time: 05/01/20 0012 Processed by: Pharmacy Medication History completed: Yes Patient Interview: Pt unable to participate Secondary Source(s): Pharmacy records, Insurance records As the person ultimately responsible for medication therapy, providers are able to order a medication from an existing home medication list in [facility] via the "Reconcile Routine" prior to Confirmation of that medication by account support analyst. Such practice is discouraged except when the physician, in their clinical judgment, deems that a medical need exists for a medication without regard to previous use.
[2020-05-01] MEDS ORDERED: MIDAZOLAM 2 MG/2 ML VIAL ONE (15:21)
[2020-05-01] MEDS ORDERED: KETAMINE 500 MG/10 ML VIAL ONE (15:21)
[2020-05-01] MEDS ORDERED: PROPOFOL 500 MG/50 ML 500 MG/50 ML VIAL ONE (15:22)
--- NOTE | 2020-05-01 15:26 | SURGERY HX AND PHYSICAL(T) ---
Surgical History & Physical - Chief Complaint/HPI Chief Complaint: Gastrointestinal bleed History of Present Illness: 70-year-old male who is undergone either upper nor lower endoscopy who presents approximately 3 weeks after endovascular AAA repair with melanotic stool and associated hypovolemic shock/anemia. Patient was transfused multiply since admission. He has only undergone appendectomy historically as far as abdominal procedures and hernia interventions. Again no prior colonoscopy. He was evaluated at [place] at which time he was noted for a large aortic aneurysm for which urgent repair was undertaken. He has been on Plavix since. No prior history of myocardial infarction nor stroke. - PMH/PSH/Social Hx Does the pt have a hx of MRSA?: No Neurological History: None Cardiovascular: Hypertension, High cholesterol, Other (AAA s/p repair) Respiratory: None Endocrine/Autoimmune: None Gastrointestinal: GERD Urinary: Benign prostate hypertrophy Psychiatric: Other (Alcohol abuse) General: Appendectomy, Other (Right Inguinal hernia repair) Cardiothoracic: AAA Smoking Status: Former smoker - Home Meds and Allergies Home Medications: Ascorbic Acid Chew [Vitamin C] 1,000 mg PO DAILY 05/01/20 Aspirin Chewable [[place] Aspirin] 81 mg PO DAILY 05/01/20 Atorvastatin [Lipitor] 10 mg PO DAILY 05/01/20 Cholecalciferol (Vitamin D3) [Vitamin D3] 1,000 unit PO DAILY 05/01/20 Clopidogrel [Plavix] 75 mg PO DAILY 05/01/20 Lisinopril [Zestril] 40 mg PO DAILY 05/01/20 Multivit-Min/FA/Lycopen/Lutein [Adults 50 Plus Multivitamin] 1 tab PO DAILY 05/01/20 Omeprazole 40 mg PO BID 05/01/20 Tamsulosin [Flomax] 0.4 mg PO BID 05/01/20 Terazosin HCl [Hytrin] 2 - 4 mg PO QPM 05/01/20 Allergies/Adverse Reactions: Allergies Allergy/AdvReac Type Severity Reaction Status Date / Time No Known Drug Allergies Allergy Verified 04/30/20 22:33 - Vital Signs Heart Rate: 70 Blood Pressure: 110/50 Temperature: 36.7 C Respiratory Rate: 18 O2 Saturation: 95 Weight (kg): 89 kg Height: 1.85 m - Physical Exam General Appearance: positive: No acute distress, Alert Eyes Bilatera: positive: Normal inspection ENT: positive: ENT inspection nml Neck: positive: Nml inspection Respiratory: positive: Chest non-tender, No respiratory distress, Breath sounds nml Cardiovascular: positive: Tachycardia Abdomen: positive: Non-tender, No distention. negative: Tenderness, Guarding, Rebound Rectal: positive: Other (Deferred pending lower endoscopy) Skin: positive: Pallor Extremities: positive: Non-tender, Full ROM, Nml appearance Neurologic/Psychiatric: positive: Oriented x3, CN's nml (2-12), Motor nml, Sensation nml, Mood/affect nml - Patient Review Patient Review: Problems were reviewed with the patient during this visit. Medications were reviewed with the patient during this visit. Allergies were reviewed this patient during this visit. Pertinent Tests Reviewed: All pertitent test for this patient were reviewed. - Assessment & Plan Assessment and Plan: 70-year-old male status post endovascular AAA repair who presents with melanotic stool. Recent Plavix. 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 We will also plan upper endoscopy to rule out gastritis/peptic ulcer disease. Malignancy is also within the differential. 1. Care per hospitalist service 2. Trend H&H and transfuse appropriately given the patient's history of cardiac disease 3. Telemetry and close hemodynamic monitoring 4. Plan upper endoscopy to evaluate source, which is most likely given the patient's presenting uremia. Will proceed with colonoscopy as well. 5. Aggressive resuscitation 6. As is always the case, diagnostic endoscopy with potential for therapeutic interventions. Given limitations, surgical interventions and/or transfer for advanced gastrointestinal interventions and/or interventional radiographic interventions remain part of this complex algorithm. 7. Bowel rest and bowel prep in anticipation of colonoscopy 8. PPI infusion and consider Carafate pending results
--- NOTE | 2020-05-01 16:28 | ANESTHESIA POST OP EVALUATION ---
Anesthesia Post Eval - Post Anesthesia Eval Vitals: Last Vital Signs Temp 36.7 C 05/01/20 15:28 Pulse 70 05/01/20 15:28 Resp 18 05/01/20 15:28 BP 110/50 L 05/01/20 15:28 Pulse Ox 95 05/01/20 15:28 CV Function Including HR & BP: positive: Stable Pain Control: positive: Satisfactory Nausea & Vomiting: positive: Negative Mental Status: positive: Patient Participates Respiratory Status: Airway Patent Hydration Status: Satisfactory Anesthesia Complications: positive: None
--- NOTE | 2020-05-01 16:43 | PROVIDER PROGRESS NOTE ---
Progress Note Brief procedure note Urgent upper and lower endoscopy and 70-year-old male status post recent endovascular AAA repair. Had been planned for continued prostate biopsy however refused further sampling and ultimately underwent CT scan which revealed aortic aneurysm. Received 2 units of blood during hospital stay. History of alcohol use and abuse. Colonoscopy findings: 1. History of recent endovascular AAA repair. Patient is approximately two weeks staus post urgent procedure. 2. No colonic prep with extensive retained stool. 3. No colitis noted all the way through to the ascending colon. No proctitis. Specifically no sigmoid or descending colitis with no concerns for ischemic colitis or other complication. Also no bright red blood noted in the colon. 4. Extensive retained stool in this 70-year-old male status post endovascular AAA repair 2 weeks prior. 5. Ascending colon achieved with no bright red blood noted throughout only melanotic stool which was extensively irrigated and lavage. 6. No a sending colitis, no transverse colitis, and especially no left-sided colitis nor sigmoid colitis in this patient for which ischemic colitis is a risk factor in this recent postoperative/post endovascular patient. No proctitis appreciated as well. 7. No large masses appreciated however retained stool precluded full evaluation. Patient has no history of prior colonoscopy. 8. Internal hemorrhoids with no active bleed. Upper endoscopy findings: 1. On initial evaluation the patient was noted for gastroesophageal ulcerations which were likely contributing to the patient's gastrointestinal bleed. We proceeded and address these for biopsy at the end. 2. Duodenum was achieved and random biopsied at D2/D3 cold forceps no complication. Hemostatic. 3. At D1 there was extensive duodenitis likely consistent with peptic ulcer disease and the patient would also been notable for history of drinking/alcohol abuse. Random biopsies achieved cold forceps hemostatic. 4. Antrum was consistent with enteritis for which biopsies were obtained cold forceps. Hemostatic. 5. Retroflexion revealed a hiatal hernia small however this area at the level of the GE junction was consistent with significant esophagitis which was noted on intubating the stomach. 6. On slow withdrawal we took focused biopsies of the gastroesophageal junction where there was extensive esophagitis. Hemostatic. Cold forcep. 7. Mid esophageal chronic inflammatory changes biopsied as well cold forceps. Recommendations: 1. Therapeutic acid suppression therapy with proton pump inhibition 2. Low risk for evaluation of aortic enteric fistula; no herald bleed, and identifiable source within the forgut vis--vis esophagitis and duodenitis as well as antritis with diffuse gastritis. 3. Carafate recommended 1000 g p.o. 4 times daily 4. Bowel rest and serial H&H's. 5. As an outpatient the patient will require follow-up upper endoscopy and also formal colonoscopy with prep given his not historically undergone this p reviously. Please note that voice recognition software was used to transcribe this note and inadvertent errors might persist in spite of review and editing. I am obliged to you for your attention. I am thankful to you for allowing me to participate with you in this care of this patient.
[2020-05-01 16:58] LABS: HGB - HEMOGLOBIN 7.3 g/dL (14.0-18.0)
[2020-05-01 18:46] LABS: BASOPHILS % (AUTO) 0.2 %; HCT - HEMATOCRIT 22.6 % (42.0-52.0); HGB - HEMOGLOBIN 7.5 g/dL (14.0-18.0); LYMPHOCYTES # (AUTO) 0.7 10^3/uL (1.5-3.5); LYMPHOCYTES % (AUTO) 6.1 %; MEAN CORPUSCULAR HEMOGLOBIN 31.4 pg (27.0-31.0); MEAN CORPUSCULAR HGB CONC 33.2 g/dL (32.0-36.0); MEAN CORPUSCULAR VOLUME 94.6 fL (80.0-94.0); MEAN PLATELET VOLUME 8.6 fL (7.4-11.4); MONOCYTES # (AUTO) 0.8 10^3/uL (0.0-1.0); MONOCYTES % (AUTO) 6.7 %; NEUTROPHILS # (AUTO) 9.6 10^3/uL (1.5-6.6); NEUTROPHILS % (AUTO) 85.6 %; PLT - PLATELET COUNT 272 10^3/uL (130-450); RED BLOOD COUNT 2.39 10^6/uL (4.70-6.10); RED CELL DISTRIBUTION WIDTH 14.7 % (12.0-15.0); WHITE BLOOD COUNT 11.2 x10^3/uL (4.8-10.8)
[2020-05-01] MEDS ORDERED: PHENOL THROAT SPRAY 177 ML MM PRN (21:33)
[2020-05-01 22:13] LABS: HCT - HEMATOCRIT 22.9 % (42.0-52.0); HGB - HEMOGLOBIN 7.4 g/dL (14.0-18.0)
[2020-05-01] MEDS ORDERED: ACETAMINOPHEN 325 MG TABLET PO PRN (22:25)
[2020-05-02] MEDS: SODIUM CHLORIDE 0.9% 1,000 ML IV SCH (02:33)
[2020-05-02] MEDS: chlordiazePOXIDE 25 MG CAPSULE PO SCH (02:33)
[2020-05-02 05:26] LABS: BASOPHILS % (AUTO) 0.1 %; HCT - HEMATOCRIT 22.3 % (42.0-52.0); HGB - HEMOGLOBIN 7.4 g/dL (14.0-18.0); LYMPHOCYTES # (AUTO) 1.1 10^3/uL (1.5-3.5); LYMPHOCYTES % (AUTO) 7.3 %; MEAN CORPUSCULAR HEMOGLOBIN 31.1 pg (27.0-31.0); MEAN CORPUSCULAR HGB CONC 33.2 g/dL (32.0-36.0); MEAN CORPUSCULAR VOLUME 93.7 fL (80.0-94.0); MEAN PLATELET VOLUME 8.8 fL (7.4-11.4); MONOCYTES # (AUTO) 0.9 10^3/uL (0.0-1.0); MONOCYTES % (AUTO) 6.1 %; NEUTROPHILS # (AUTO) 12.3 10^3/uL (1.5-6.6); NEUTROPHILS % (AUTO) 85.6 %; PLT - PLATELET COUNT 259 10^3/uL (130-450); RED BLOOD COUNT 2.38 10^6/uL (4.70-6.10); RED CELL DISTRIBUTION WIDTH 14.6 % (12.0-15.0); WHITE BLOOD COUNT 14.4 x10^3/uL (4.8-10.8)
[2020-05-02 05:39] LABS: CALCIUM 8.1 mg/dL (8.5-10.3); CREATININE 1.2 mg/dL (0.6-1.2); POTASSIUM 4.4 mmol/L (3.5-5.0)
[2020-05-02 08:22] LABS: HCT - HEMATOCRIT 23.7 % (42.0-52.0); HGB - HEMOGLOBIN 8.1 g/dL (14.0-18.0)
--- NOTE | 2020-05-02 08:47 | Discharge Plan ---
Discharge Plan Problem Reviewed?: Yes Disposition: Home, Self Care Condition: Stable Prescriptions: Sucralfate [Carafate] 1 gm PO QID #120 tablet chlordiazePOXIDE [Librium] 25 mg PO BID PRN #8 cap PRN Reason: Anxiety Pnv No.95/Ferrous Fum/Folic AC [ Tablet] 1 each PO DAILY #30 tablet Thiamine [Vitamin B-1] 100 mg PO DAILY #30 tablet Diet: Soft Activity Restrictions: Activity as Tolerated Shower Restrictions: No (fall precaution) Instruction Topics: Sucralfate tablets, Chlordiazepoxide capsules, Bleeding Gastrointestinal, Alcoholism, Alcoholism Impact Health Concerns: GI bleeding, AAA repair, alcoholism Plan of Treatment: you are found to have extensive duodenitis likely consistent with peptic ulcer disease in endoscopy, carafate plus your home omeprazole to help your gastric ulcer and duodenitis healing, you may followup with outpatient endoscopy in 4-6 weeks to monitor the gastric ulcer healing. Strongly advise you quit your alcohol drinking, which will help your gastric ulcer healing as well. librium, , vitamin B1 help you quit alcohol. 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 Care Goals: stabilization and improvement of your medical conditions Assessment: discussed the care plan with you, answered your questions, you understood and agreed Additional Instructions or Follow Up instructions: You may followup with your PCP in one week, followup with GI in 4-6 weeks to have endoscopy, followup with your vascular surgeon as your schedule on today afternoon. Should your symptoms return or worsen, you may present ER or call 911 for help. No Smoking: If you smoke, Please STOP! Call for help. Follow-up with: Eric Mascorro MD [Primary Care Provider] -
[2020-05-02] MEDS: PANTOPRAZOLE 40 MG VIAL IVP SCH (08:58)
[2020-05-02] MEDS: PRENATAL VITAMIN TABLET PO SCH (08:58)
[2020-05-02] MEDS: THIAMINE 100 MG TABLET PO SCH (08:58)
[2020-05-02] MEDS: SODIUM CHLORIDE FLUSH 0.9% 10 ML SYRINGE IVP SCH (08:59)
[2020-05-02] MEDS ORDERED: chlordiazePOXIDE 25 MG CAPSULE PO SCH (09:00)
--- NOTE | 2020-05-02 09:13 | DISCHARGE SUMMARY ---
Discharge Summary Admit Date: 05/01/20 Discharge Date: 05/02/20 Discharging Provider: Montrell Early Primary Care Provider: Eric Valenzuela Condition at Discharge: Stable Discharge Disposition: 01 Home, Self Care Discharge Facility Name: home - DIAGNOSES Discharge Diagnoses with Status of Each Condition: (1) Acute anemia improved. Hemoglobin stable and increased to 8.1 in the discharge from 6.1 in the admission. it is likely caused by pt's acute upper GI ulcers bleeding. Pt had EGD done by hospital show pt had extensive duodenitis likely consistent with peptic ulcer disease, and extensive esophagritis as well, so Home medication Aspirin is hold now. advise pt hold Aspirin, Ibuprofen, quit alcohol. Pt agreed and state he will quit alcohol. pt is prescribed Medications to help him quit alcohol. propagation worker also was consulted. CTA of abdomen/pelvis show Source of GI bleeding is not identified, no varices shown. The superior mesenteric artery and celiac axis each are patent. I called Dr. 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 Dr. Magallon reviewed the image study again, he stated it is fine, pt does not need to be transferred. asked if pt had good pause in his lower extremities. I went to assess pt, pt did have good dorsalis pedis artery pause, and warm foot bilaterally. ER provider also consulted with Dr. Magallon for pt's GI bleed and the new study, who said the Plavix is not necessary post this procedure, and is okay to discontinue the Plavix in lieu of UGI bleed. Pt has appointment to see his vascular surgeon group at today afternoon. Pt state he will go to see today afternoon. pt was d/c at [facility]. (2) GI bleeding Hemoglobin stable and increased to 8.1. pt had no bowel movement. pt has EGD done by hospital show pt had extensive duodenitis likely consistent with peptic ulcer disease, and extensive esophagritis as well, so Home medication Aspirin is hold now. advise pt hold Aspirin, Ibuprofen, quit alcohol. Pt agreed and state he will quit alcohol. pt is prescribed Medications to help him quit alcohol. propagation worker also was consulted. advise pt continue his home Protonix 40mg Bid, add Carafate for pt, per surgeon recommend, followup with GI surgeon in 4-6 week to have endoscopy to monitor gastric ulcer healing. GI surgeon did biopsy as well, will followup the result for pt. (3) Acute renal insufficiency great improved, creatinine is 1.2 from 1.6 at admission. advise pt keep hydration at home, and quit alcohol. (4) AAA (abdominal aortic aneurysm) status post recent endovascular AAA repair, Patient underwent stent graft at [facility]. After discussed with vascular surgeon in [place], Dr. Magallon Recommended D/C Plavix, Patient is safety stay on our hospital. Pt has appointment to see his vascular surgeon group at today afternoon. Pt state he will go to see today afternoon. pt was d/c at [facility]. (5) Leukocytosis Suspect this is reactive. Patient has no respiratory distress or caugh, no dysuria. pt has no fever, Hemodynamic stable. patient state he had a Landa catheter since he had AAA repair procedure from [facility] [place]. He was scheduled to see urologist. (6) Hyponatremia Sodium is 125 now from 120 at at admission. suspect combination of pt's dehydration and alcohol abuse with poor oral intake. pt may followup with PCP continue monitor, and keep hydration, and quit alcohol. (7) Alcohol abuse educate pt it is very important for him to quit alcohol, special now he has GI bleed. Thiamine and multivitamins, and Labrium are prescribed for pt (8) BPH (benign prostatic hyperplasia) resume home meds, see urologist as out-pt (9) Hyperlipidemia stable (10) Hypertension stable (11) GERD (gastroesophageal reflux disease) resume Protonix (12)urinary retention pt had a Lanad catheter since s/p AAA repair at [place], he had an appointment to see urologist - HPI History of Present Illness: refer from Dr. Baird's HPI on 05/01/20 Patient is a 70-year-old male with medical history significant for hypertension, GERD, abdominal aortic aneurysm status post repair, BPH and alcohol abuse who presented to the ED with anemia. He underwent a AAA repair about 2-1/2 weeks ago and has been on Plavix since then. He saw his primary care physician today because he has been progressively weak and dizzy for the past 2-1/2 weeks. He has also been having dark stools in this time. Furthermore he reports unsteady gait, dyspnea, nausea and vomiting. Routine labs done at his primary care physician's office showed a hemoglobin of 6.5. He was brought to the ED by a friend. Repeat hemoglobin in the ED was 6.1. Patient systolic blood pressure is 100. He has been taking and increasingly amount of Rolaids for heartburn. The patient drinks 4-5 beers daily. He denies ever having gone through alcohol withdrawal. He also denies any history of GI bleed. As a result of his symptoms he was presented for admission for further treatment. - HOSPITAL COURSE Hospital Course: pt was admitted for weak and dizzy, and report dark stools. pt was found to have HGB 6.1, and sodium 120 and increased creatinine to 1.6. Patient is an alcoholism as well. Patient had a recent AAA repair in the [place]. Patient had a EGD done in the hospital, patient had blood transfusion of 3 units in the hospital, also patient had intravenous IV fluids. EGD done by hospital show pt had extensive duodenitis likely consistent with peptic ulcer disease, and extensive esophagritis, pt is prescribed Carafate with his home PPI. HGB became stable and increased to 8.1. pt want to be d/c to see his vascular surgeon on today afternoon. Creatinine became 1.2 and Sodium became 125 after treatment. Patient is discharged at hemodynamically stable condition - ALLERGIES Allergies/Adverse Reactions: Allergies Allergy/AdvReac Type Severity Reaction Status Date / Time No Known Drug Allergies Allergy Verified 04/30/20 22:33 - MEDICATIONS Home Medications: Ambulatory Orders Medication Instructions Recorded Confirmed Ascorbic Acid Chew [Vitamin C] 1,000 mg PO DAILY 05/01/20 05/01/20 Atorvastatin [Lipitor] 10 mg PO DAILY 05/01/20 05/01/20 Cholecalciferol (Vitamin D3) 1,000 unit PO DAILY 05/01/20 05/01/20 [Vitamin D3] Lisinopril [Zestril] 40 mg PO DAILY 05/01/20 05/01/20 Multivit-Min/FA/Lycopen/Lutein 1 tab PO DAILY 05/01/20 05/01/20 [Adults 50 Plus Multivitamin] Omeprazole 40 mg PO BID 05/01/20 05/01/20 Tamsulosin [Flomax] 0.4 mg PO BID 05/01/20 05/01/20 Terazosin HCl [Hytrin] 2 - 4 mg PO QPM 05/01/20 05/01/20 Pnv No.95/Ferrous Fum/Folic AC 1 each PO DAILY #30 tablet 05/02/20 [ Tablet] Sucralfate [Carafate] 1 gm PO QID #120 tablet 05/02/20 Thiamine [Vitamin B-1] 100 mg PO DAILY #30 tablet 05/02/20 chlordiazePOXIDE [Librium] 25 mg PO BID PRN #8 cap 05/02/20 - PHYSICAL EXAM AT DISCHARGE General Appearance: positive: No acute distress, Alert. negative: Lethargic Eyes Bilateral: positive: Normal inspection, PERRL, No lid inflammation ENT: positive: ENT inspection nml, No signs of dehydration. negative: Dry mucous membranes Neck: positive: Nml inspection, Trachea midline. negative: Thyromegaly, Tracheal deviation Respiratory: positive: Chest non-tender, No respiratory distress. negative: Wheezes, Rales Cardiovascular: positive: Regular rate & rhythm, No murmur. negative: Tachycardia, Bradycardia, Systolic murmur, Diastolic murmur Peripheral Pulses: positive: 2+, Other (normal pause (+2) at dorsalis pedis in bilateral foot ) Abdomen: positive: Non-tender, Nml bowel sounds, No distention, Other (There is no pain, tenderness, sign of hematoma in pt's procedure site at bilateral groin area). negative: Tenderness, Guarding, Rebound Back: positive: Nml inspection Skin: positive: Color nml, Warm, Dry. negative: Cyanosis, Diaphoresis, Pallor Extremities: positive: Non-tender, Full ROM, Nml appearance, Other (normal pause (+2) at dorsalis pedis in bilateral foot, warm foot bilateral). negative: Pedal edema, Calf tenderness, Joint swelling Neurologic/Psychiatric: positive: Oriented x3, Motor nml, Sensation nml, Mood/affect nml. negative: Weakness, Sensory loss, Facial droop, Slurred/abnml speech, Depressed mood/affect - LABS Result Diagrams: 05/02/20 08:20 05/02/20 04:38 - FOLLOW UP Follow Up: you are found to have extensive duodenitis likely consistent with peptic ulcer disease in endoscopy, carafate plus your home omeprazole to help your gastric ulcer and duodenitis healing, you may followup with outpatient endoscopy in 4-6 weeks to monitor the gastric ulcer healing. Strongly advise you quit your alcohol drinking, which will help your gastric ulcer healing as well. librium, , vitamin B1 help you quit alcohol. 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 You may followup with urologist for your Landa catheter care. You may followup with your PCP in one week, followup with GI in 4-6 weeks to have endoscopy, followup with your vascular surgeon as your schedule on today afternoon. Should your symptoms return or worsen, you may present ER or call 911 for help. - TIME SPENT Time Spent in Discharge (Minutes): 30
[2020-05-02 09:20] VITALS: BP 110/55
== END 2020-05-02 10:45 | disposition home or self-care (01) | DRG 811 ==
LOC: ED 21:26 → MS2 05-01 00:12
PROVIDERS: ADMIT Internal Medicine; ATTEND Nurse Practitioner Gerontology
PROC: 0DB28ZX Excision of Middle Esophagus, Via Natural or Artificial Opening Endoscopic, Diagnostic (ICD-10-PCS; 2020-05-01)
PROC: 0DB48ZX Excision of Esophagogastric Junction, Via Natural or Artificial Opening Endoscopic, Diagnostic (ICD-10-PCS; 2020-05-01)
PROC: 0DJD8ZZ Inspection of Lower Intestinal Tract, Via Natural or Artificial Opening Endoscopic (ICD-10-PCS; 2020-05-01)
PROC: 30233N1 Transfusion of Nonautologous Red Blood Cells into Peripheral Vein, Percutaneous Approach (ICD-10-PCS; 2020-05-01)
PROC: 0DB98ZX Excision of Duodenum, Via Natural or Artificial Opening Endoscopic, Diagnostic (ICD-10-PCS; principal; 2020-05-01 14:00)
PROC: 0DB78ZX Excision of Stomach, Pylorus, Via Natural or Artificial Opening Endoscopic, Diagnostic (ICD-10-PCS; 2020-05-01 14:00)
PROC: 30233N1 Transfusion of Nonautologous Red Blood Cells into Peripheral Vein, Percutaneous Approach (ICD-10-PCS; 2020-05-02)
DX: K92.1 Melena (principal); D64.89 Other specified anemias; D62 Acute posthemorrhagic anemia; K26.4 Chronic or unspecified duodenal ulcer with hemorrhage; K21.01 Gastro-esophageal reflux disease with esophagitis, with bleeding; E87.1 Hypo-osmolality and hyponatremia; N28.9 Disorder of kidney and ureter, unspecified; R60.0 Localized edema; R53.1 Weakness; Z98.890 Other specified postprocedural states; I71.4 Abdominal aortic aneurysm, without rupture; D72.829 Elevated white blood cell count, unspecified; E86.0 Dehydration; F10.10 Alcohol abuse, uncomplicated; N40.1 Benign prostatic hyperplasia with lower urinary tract symptoms; R33.8 Other retention of urine; Z96.0 Presence of urogenital implants; I10 Essential (primary) hypertension; K44.9 Diaphragmatic hernia without obstruction or gangrene; E78.5 Hyperlipidemia, unspecified; Z87.891 Personal history of nicotine dependence; Z20.822 Contact with and (suspected) exposure to COVID-19
CPT/HCPCS: 36415; 74174; 80048; 80053; 82607; 82746; 83690; 83735; 83880; 85014; 85018; 85025; 85610; 85730; 86850; 86900; 86901; 86920; 87631; 93005; 96374; 96375; 99284; 99285; A9270; P9016; P9040; Q9967; 0202U; 87338

== ENCOUNTER 2020-05-09 10:27 | Outpatient (CLI) | payer MEDICARE, MEDICAID ==
[2020-05-09 14:50] LABS: BASOPHILS % (AUTO) 0.1 %; HCT - HEMATOCRIT 25.8 % (42.0-52.0); LYMPHOCYTES # (AUTO) 0.8 10^3/uL (1.5-3.5); LYMPHOCYTES % (AUTO) 12.1 %; MEAN CORPUSCULAR VOLUME 96.6 fL (80.0-94.0); MEAN PLATELET VOLUME 8.9 fL (7.4-11.4); MONOCYTES # (AUTO) 0.8 10^3/uL (0.0-1.0); MONOCYTES % (AUTO) 11.5 %; NEUTROPHILS # (AUTO) 5.3 10^3/uL (1.5-6.6); NEUTROPHILS % (AUTO) 75.9 %; PLT - PLATELET COUNT 295 10^3/uL (130-450); RED BLOOD COUNT 2.67 10^6/uL (4.70-6.10); RED CELL DISTRIBUTION WIDTH 14.6 % (12.0-15.0); WHITE BLOOD COUNT 6.9 x10^3/uL (4.8-10.8)
== END 2020-05-09 10:28 | disposition home or self-care (01) ==
LOC: LAB.S 10:27
PROVIDERS: ATTEND Internal Medicine
DX: K92.2 Gastrointestinal hemorrhage, unspecified (principal)
CPT/HCPCS: 36415; 85025

== ENCOUNTER 2020-05-14 11:15 | Outpatient (CLI) | payer MEDICARE, MEDICAID ==
[2020-05-14 14:54] LABS: BASOPHILS % (AUTO) 0.1 %; HCT - HEMATOCRIT 26.6 % (42.0-52.0); LYMPHOCYTES # (AUTO) 1.5 10^3/uL (1.5-3.5); LYMPHOCYTES % (AUTO) 16.9 %; MEAN CORPUSCULAR HEMOGLOBIN 28.8 pg (27.0-31.0); MEAN CORPUSCULAR HGB CONC 30.1 g/dL (32.0-36.0); MEAN CORPUSCULAR VOLUME 95.7 fL (80.0-94.0); MEAN PLATELET VOLUME 9.2 fL (7.4-11.4); MONOCYTES # (AUTO) 0.8 10^3/uL (0.0-1.0); MONOCYTES % (AUTO) 9.2 %; NEUTROPHILS # (AUTO) 6.4 10^3/uL (1.5-6.6); NEUTROPHILS % (AUTO) 73.2 %; PLT - PLATELET COUNT 379 10^3/uL (130-450); RED BLOOD COUNT 2.78 10^6/uL (4.70-6.10); RED CELL DISTRIBUTION WIDTH 14.6 % (12.0-15.0); WHITE BLOOD COUNT 8.7 x10^3/uL (4.8-10.8)
== END 2020-05-14 11:16 | disposition home or self-care (01) ==
LOC: LAB.S 11:15
PROVIDERS: ATTEND Internal Medicine
DX: D62 Acute posthemorrhagic anemia (principal)
CPT/HCPCS: 36415; 85025

== ENCOUNTER 2020-05-16 13:13 | Outpatient (CLI) | payer MEDICARE, MEDICAID ==
[2020-05-16 20:02] LABS: BASOPHILS % (AUTO) 0.1 %; HCT - HEMATOCRIT 27.1 % (42.0-52.0); HGB - HEMOGLOBIN 8.4 g/dL (14.0-18.0); LYMPHOCYTES # (AUTO) 1.5 10^3/uL (1.5-3.5); LYMPHOCYTES % (AUTO) 17.2 %; MEAN CORPUSCULAR HEMOGLOBIN 29.3 pg (27.0-31.0); MEAN CORPUSCULAR VOLUME 94.4 fL (80.0-94.0); MEAN PLATELET VOLUME 9.2 fL (7.4-11.4); MONOCYTES # (AUTO) 0.7 10^3/uL (0.0-1.0); MONOCYTES % (AUTO) 8.6 %; NEUTROPHILS # (AUTO) 6.3 10^3/uL (1.5-6.6); NEUTROPHILS % (AUTO) 73.6 %; PLT - PLATELET COUNT 390 10^3/uL (130-450); RED BLOOD COUNT 2.87 10^6/uL (4.70-6.10); RED CELL DISTRIBUTION WIDTH 14.6 % (12.0-15.0); WHITE BLOOD COUNT 8.6 x10^3/uL (4.8-10.8)
== END 2020-05-16 13:14 | disposition home or self-care (01) ==
LOC: LAB.S 13:13
PROVIDERS: ATTEND Internal Medicine
DX: D62 Acute posthemorrhagic anemia (principal)
CPT/HCPCS: 36415; 85025

== ENCOUNTER 2020-05-24 10:14 | Outpatient (CLI) | payer MEDICARE, MEDICAID ==
[2020-05-24 14:22] LABS: BASOPHILS # (AUTO) 0.1 10^3/uL (0.0-0.1); BASOPHILS % (AUTO) 0.6 %; EOSINOPHILS # (AUTO) 0.2 10^3/uL (0.0-0.7); EOSINOPHILS % (AUTO) 2.5 %; HCT - HEMATOCRIT 26.9 % (42.0-52.0); HGB - HEMOGLOBIN 8.2 g/dL (14.0-18.0); LYMPHOCYTES # (AUTO) 1.4 10^3/uL (1.5-3.5); LYMPHOCYTES % (AUTO) 18.6 %; MEAN CORPUSCULAR HEMOGLOBIN 27.6 pg (27.0-31.0); MEAN CORPUSCULAR HGB CONC 30.5 g/dL (32.0-36.0); MEAN CORPUSCULAR VOLUME 90.6 fL (80.0-94.0); MEAN PLATELET VOLUME 9.5 fL (7.4-11.4); MONOCYTES # (AUTO) 0.8 10^3/uL (0.0-1.0); MONOCYTES % (AUTO) 9.9 %; NEUTROPHILS # (AUTO) 5.3 10^3/uL (1.5-6.6); PLT - PLATELET COUNT 384 10^3/uL (130-450); RED BLOOD COUNT 2.97 10^6/uL (4.70-6.10); RED CELL DISTRIBUTION WIDTH 15.8 % (12.0-15.0); WHITE BLOOD COUNT 7.7 x10^3/uL (4.8-10.8)
== END 2020-05-24 10:15 | disposition home or self-care (01) ==
LOC: LAB.S 10:14
PROVIDERS: ATTEND Internal Medicine
DX: D62 Acute posthemorrhagic anemia (principal)
CPT/HCPCS: 36415; 85025

== ENCOUNTER 2020-06-16 08:00 | Outpatient (CLI) | payer MEDICARE, MEDICAID | END 2020-06-16 23:59 | disposition home or self-care (01) | LOC: LAB.R 08:00 | PROVIDERS: ATTEND Physician Assistant | DX: N30.00 Acute cystitis without hematuria (principal) | CPT/HCPCS: 87086 ==

== ENCOUNTER 2020-06-16 15:22 | Outpatient (CLI) | payer MEDICARE, MEDICAID ==
[2020-06-16 17:51] LABS: BASOPHILS # (AUTO) 0.1 10^3/uL (0.0-0.1); BASOPHILS % (AUTO) 0.6 %; EOSINOPHILS # (AUTO) 0.5 10^3/uL (0.0-0.7); EOSINOPHILS % (AUTO) 4.4 %; HCT - HEMATOCRIT 33.2 % (42.0-52.0); HGB - HEMOGLOBIN 10.4 g/dL (14.0-18.0); LYMPHOCYTES # (AUTO) 1.4 10^3/uL (1.5-3.5); LYMPHOCYTES % (AUTO) 12.5 %; MEAN CORPUSCULAR HEMOGLOBIN 26.4 pg (27.0-31.0); MEAN CORPUSCULAR HGB CONC 31.3 g/dL (32.0-36.0); MEAN CORPUSCULAR VOLUME 84.3 fL (80.0-94.0); MEAN PLATELET VOLUME 9.8 fL (7.4-11.4); MONOCYTES # (AUTO) 1.1 10^3/uL (0.0-1.0); NEUTROPHILS # (AUTO) 7.9 10^3/uL (1.5-6.6); NEUTROPHILS % (AUTO) 72.2 %; PLT - PLATELET COUNT 330 10^3/uL (130-450); RED BLOOD COUNT 3.94 10^6/uL (4.70-6.10); RED CELL DISTRIBUTION WIDTH 16.4 % (12.0-15.0); WHITE BLOOD COUNT 10.9 x10^3/uL (4.8-10.8)
== END 2020-06-16 15:23 | disposition home or self-care (01) ==
LOC: LAB.S 15:22
PROVIDERS: ATTEND Internal Medicine
DX: D62 Acute posthemorrhagic anemia (principal)
CPT/HCPCS: 36415; 82728; 85025

== ENCOUNTER 2020-07-20 09:48 | Outpatient (CLI) | payer MEDICARE, MEDICAID ==
[2020-07-20 14:35] LABS: BASOPHILS % (AUTO) 0.4 %; EOSINOPHILS # (AUTO) 0.1 10^3/uL (0.0-0.7); EOSINOPHILS % (AUTO) 1.4 %; HCT - HEMATOCRIT 38.5 % (42.0-52.0); HGB - HEMOGLOBIN 11.7 g/dL (14.0-18.0); LYMPHOCYTES # (AUTO) 1.4 10^3/uL (1.5-3.5); LYMPHOCYTES % (AUTO) 15.2 %; MEAN CORPUSCULAR HEMOGLOBIN 25.1 pg (27.0-31.0); MEAN CORPUSCULAR HGB CONC 30.4 g/dL (32.0-36.0); MEAN CORPUSCULAR VOLUME 82.4 fL (80.0-94.0); MONOCYTES # (AUTO) 0.8 10^3/uL (0.0-1.0); MONOCYTES % (AUTO) 8.9 %; NEUTROPHILS # (AUTO) 6.7 10^3/uL (1.5-6.6); NEUTROPHILS % (AUTO) 73.9 %; PLT - PLATELET COUNT 276 10^3/uL (130-450); RED BLOOD COUNT 4.67 10^6/uL (4.70-6.10); RED CELL DISTRIBUTION WIDTH 17.2 % (12.0-15.0); WHITE BLOOD COUNT 9.1 x10^3/uL (4.8-10.8)
== END 2020-07-20 09:49 | disposition home or self-care (01) ==
LOC: LAB.S 09:48
PROVIDERS: ATTEND Internal Medicine
DX: N30.00 Acute cystitis without hematuria (principal); D62 Acute posthemorrhagic anemia
CPT/HCPCS: 36415; 82728; 85025

== ENCOUNTER 2020-07-25 12:06 | Outpatient (CLI) | payer MEDICARE, MEDICAID ==
--- NOTE | 2020-07-25 12:53 | XRAY Report ---
PROCEDURE: Chest 2 View X-Ray INDICATIONS: SOB TECHNIQUE: 2 view(s) of the chest. COMPARISON: None. FINDINGS: Surgical changes and devices: None. Lungs: No acute consolidation. High density presumably millimeter calcified granuloma projecting in t he right upper lobe. Bilateral presumed symmetric nipple shadows are incidentally noted. Pleura: No pleural effusions or pneumothorax. Mediastinum: Mediastinal contours are normal. Heart size is normal. Bones and chest wall: No suspicious bony abnormalities. Soft tissues appear unremarkable. IMPRESSION: No acute disease. A presumed incidental 3 mm calcific granuloma projects in the right upper lobe. Thi s could be confirmed with 2 view chest radiographs in one year to document long-term stability. Reviewed by: Brent Epstein MD on 07/25/2020 12:52 PM PDT Approved by: Brent Epstein MD on 07/25/2020 12:52 PM PDT Station ID: [id number]
== END 2020-07-25 12:07 | disposition home or self-care (01) ==
LOC: DI.S 12:06
PROVIDERS: ATTEND Internal Medicine
DX: R91.8 Other nonspecific abnormal finding of lung field (principal)

== ENCOUNTER 2020-08-14 13:26 | Outpatient (CLI) | payer MEDICARE, MEDICAID | END 2020-08-14 13:27 | disposition home or self-care (01) | LOC: RT 13:26 | PROVIDERS: ATTEND Internal Medicine | DX: R06.02 Shortness of breath (principal); Z96.0 Presence of urogenital implants | CPT/HCPCS: 94060 ==

== ENCOUNTER 2020-08-27 10:02 | Outpatient (CLI) | payer MEDICARE, MEDICAID ==
[2020-08-27 15:55] LABS: BASOPHILS # (AUTO) 0.1 10^3/uL (0.0-0.1); BASOPHILS % (AUTO) 0.6 %; EOSINOPHILS # (AUTO) 0.2 10^3/uL (0.0-0.7); EOSINOPHILS % (AUTO) 3.1 %; HCT - HEMATOCRIT 41.3 % (42.0-52.0); HGB - HEMOGLOBIN 12.3 g/dL (14.0-18.0); LYMPHOCYTES # (AUTO) 1.4 10^3/uL (1.5-3.5); MEAN CORPUSCULAR HEMOGLOBIN 24.4 pg (27.0-31.0); MEAN CORPUSCULAR HGB CONC 29.8 g/dL (32.0-36.0); MEAN CORPUSCULAR VOLUME 81.8 fL (80.0-94.0); MEAN PLATELET VOLUME 10.2 fL (7.4-11.4); MONOCYTES # (AUTO) 0.8 10^3/uL (0.0-1.0); MONOCYTES % (AUTO) 10.2 %; NEUTROPHILS # (AUTO) 5.3 10^3/uL (1.5-6.6); NEUTROPHILS % (AUTO) 67.8 %; PLT - PLATELET COUNT 262 10^3/uL (130-450); RED BLOOD COUNT 5.05 10^6/uL (4.70-6.10); RED CELL DISTRIBUTION WIDTH 18.6 % (12.0-15.0); WHITE BLOOD COUNT 7.9 x10^3/uL (4.8-10.8)
== END 2020-08-27 10:03 | disposition home or self-care (01) ==
LOC: LAB.S 10:02
PROVIDERS: ATTEND Internal Medicine
DX: D64.9 Anemia, unspecified (principal)
CPT/HCPCS: 36415; 82728; 85025

== ENCOUNTER 2020-11-13 13:30 | Outpatient (CLI) | payer MEDICARE, MEDICAID ==
[2020-11-13 19:55] LABS: BASOPHILS # (AUTO) 0.1 10^3/uL (0.0-0.1); BASOPHILS % (AUTO) 0.7 %; EOSINOPHILS # (AUTO) 0.3 10^3/uL (0.0-0.7); EOSINOPHILS % (AUTO) 3.2 %; HCT - HEMATOCRIT 43.7 % (42.0-52.0); HGB - HEMOGLOBIN 13.6 g/dL (14.0-18.0); LYMPHOCYTES # (AUTO) 1.5 10^3/uL (1.5-3.5); LYMPHOCYTES % (AUTO) 17.5 %; MEAN CORPUSCULAR HEMOGLOBIN 27.6 pg (27.0-31.0); MEAN CORPUSCULAR HGB CONC 31.1 g/dL (32.0-36.0); MEAN CORPUSCULAR VOLUME 88.8 fL (80.0-94.0); MEAN PLATELET VOLUME 10.3 fL (7.4-11.4); MONOCYTES # (AUTO) 0.8 10^3/uL (0.0-1.0); NEUTROPHILS % (AUTO) 69.3 %; PLT - PLATELET COUNT 232 10^3/uL (130-450); RED BLOOD COUNT 4.92 10^6/uL (4.70-6.10); RED CELL DISTRIBUTION WIDTH 17.3 % (12.0-15.0); WHITE BLOOD COUNT 8.6 x10^3/uL (4.8-10.8)
[2020-11-13 20:16] LABS: THYROID STIMULATING HORMONE 0.69 uIU/mL (0.34-5.60)
[2020-11-13 20:22] LABS: FERRITIN 43.4 ng/mL (23.9-336.2)
== END 2020-11-13 13:31 | disposition home or self-care (01) ==
LOC: LAB.S 13:30
PROVIDERS: ATTEND Internal Medicine
DX: D64.9 Anemia, unspecified (principal); R94.6 Abnormal results of thyroid function studies
CPT/HCPCS: 36415; 82728; 84443; 85025

== ENCOUNTER 2021-01-11 07:51 | Outpatient (CLI) | payer MEDICARE, MEDICAID ==
[2021-01-11 15:24] LABS: BASOPHILS % (AUTO) 0.6 %; EOSINOPHILS # (AUTO) 0.3 10^3/uL (0.0-0.7); EOSINOPHILS % (AUTO) 4.9 %; HCT - HEMATOCRIT 43.8 % (42.0-52.0); HGB - HEMOGLOBIN 13.8 g/dL (14.0-18.0); LYMPHOCYTES # (AUTO) 1.3 10^3/uL (1.5-3.5); LYMPHOCYTES % (AUTO) 20.1 %; MEAN CORPUSCULAR HEMOGLOBIN 29.2 pg (27.0-31.0); MEAN CORPUSCULAR HGB CONC 31.5 g/dL (32.0-36.0); MEAN CORPUSCULAR VOLUME 92.6 fL (80.0-94.0); MEAN PLATELET VOLUME 10.1 fL (7.4-11.4); MONOCYTES # (AUTO) 0.6 10^3/uL (0.0-1.0); MONOCYTES % (AUTO) 8.5 %; NEUTROPHILS # (AUTO) 4.4 10^3/uL (1.5-6.6); NEUTROPHILS % (AUTO) 65.6 %; PLT - PLATELET COUNT 181 10^3/uL (130-450); RED BLOOD COUNT 4.73 10^6/uL (4.70-6.10); RED CELL DISTRIBUTION WIDTH 14.6 % (12.0-15.0); WHITE BLOOD COUNT 6.7 x10^3/uL (4.8-10.8)
== END 2021-01-11 07:52 | disposition home or self-care (01) ==
LOC: LAB.S 07:51
PROVIDERS: ATTEND Internal Medicine
DX: D64.9 Anemia, unspecified (principal)
CPT/HCPCS: 36415; 82728; 85025

== ENCOUNTER 2021-05-22 13:51 | Outpatient (CLI) | payer MEDICARE, MEDICAID ==
[2021-05-22 20:05] LABS: BASOPHILS # (AUTO) 0.1 10^3/uL (0.0-0.1); BASOPHILS % (AUTO) 0.6 %; EOSINOPHILS # (AUTO) 0.4 10^3/uL (0.0-0.7); EOSINOPHILS % (AUTO) 3.8 %; HGB - HEMOGLOBIN 12.9 g/dL (14.0-18.0); LYMPHOCYTES # (AUTO) 1.7 10^3/uL (1.5-3.5); LYMPHOCYTES % (AUTO) 16.7 %; MEAN CORPUSCULAR HEMOGLOBIN 30.2 pg (27.0-31.0); MEAN CORPUSCULAR HGB CONC 32.3 g/dL (32.0-36.0); MEAN CORPUSCULAR VOLUME 93.7 fL (80.0-94.0); MEAN PLATELET VOLUME 9.7 fL (7.4-11.4); MONOCYTES # (AUTO) 0.8 10^3/uL (0.0-1.0); MONOCYTES % (AUTO) 7.7 %; NEUTROPHILS # (AUTO) 7.1 10^3/uL (1.5-6.6); NEUTROPHILS % (AUTO) 70.8 %; PLT - PLATELET COUNT 248 10^3/uL (130-450); RED BLOOD COUNT 4.27 10^6/uL (4.70-6.10); RED CELL DISTRIBUTION WIDTH 13.2 % (12.0-15.0); WHITE BLOOD COUNT 10.1 x10^3/uL (4.8-10.8)
== END 2021-05-22 13:52 | disposition home or self-care (01) ==
LOC: LAB.S 13:51
PROVIDERS: ATTEND Internal Medicine
DX: D64.9 Anemia, unspecified (principal)
CPT/HCPCS: 36415; 82728; 85025

== ENCOUNTER 2021-12-23 09:06 | Outpatient (CLI) | payer MEDICARE, MEDICAID ==
[2021-12-23 14:34] LABS: BASOPHILS # (AUTO) 0.1 10^3/uL (0.0-0.1); BASOPHILS % (AUTO) 0.8 %; EOSINOPHILS # (AUTO) 0.3 10^3/uL (0.0-0.7); EOSINOPHILS % (AUTO) 3.4 %; HCT - HEMATOCRIT 49.5 % (42.0-52.0); HGB - HEMOGLOBIN 16.1 g/dL (14.0-18.0); LYMPHOCYTES # (AUTO) 1.5 10^3/uL (1.5-3.5); LYMPHOCYTES % (AUTO) 19.4 %; MEAN CORPUSCULAR HEMOGLOBIN 31.4 pg (27.0-31.0); MEAN CORPUSCULAR HGB CONC 32.5 g/dL (32.0-36.0); MEAN CORPUSCULAR VOLUME 96.5 fL (80.0-94.0); MEAN PLATELET VOLUME 10.2 fL (7.4-11.4); MONOCYTES # (AUTO) 0.8 10^3/uL (0.0-1.0); MONOCYTES % (AUTO) 9.9 %; NEUTROPHILS # (AUTO) 5.2 10^3/uL (1.5-6.6); NEUTROPHILS % (AUTO) 66.2 %; PLT - PLATELET COUNT 194 10^3/uL (130-450); RED BLOOD COUNT 5.13 10^6/uL (4.70-6.10); RED CELL DISTRIBUTION WIDTH 13.2 % (12.0-15.0); WHITE BLOOD COUNT 7.9 x10^3/uL (4.8-10.8)
[2021-12-23 15:15] LABS: THYROID STIMULATING HORMONE 0.88 uIU/mL (0.34-5.60)
[2021-12-23 15:18] LABS: % IRON SATURATION 28 % (20-50); ALBUMIN 4.2 g/dL (3.2-5.5); ALBUMIN/GLOBULIN RATIO 1.5 (1.0-2.2); ALKALINE PHOSPHATASE 60 IU/L (42-121); ALT ALANINE AMINOTRANSFERASE 29 IU/L (10-60); AST ASPARTATE AMINOTRANSFERASE 22 IU/L (10-42); BILIRUBIN,TOTAL 0.6 mg/dL (0.2-1.0); BUN - BLOOD UREA NITROGEN 23 mg/dL (6-20); CALCIUM 9.8 mg/dL (8.5-10.3); CARBON DIOXIDE - CO2 26 mmol/L (21-32); CHLORIDE 106 mmol/L (101-111); CHOL/HDL RATIO 2.8 (<5.0); CHOLESTEROL 163 mg/dL; CREATININE 1.1 mg/dL (0.6-1.2); GFR - MDRD 66 (>89); GLUCOSE 101 mg/dL (70-100); HDL CHOLESTEROL 59 mg/dL; IRON 102 ug/dL (45-182); LDL CHOLESTEROL,CALCULATED 88 mg/dL; LDL/HDL RATIO 1.5 (<3.6); POTASSIUM 4.5 mmol/L (3.5-5.0); SODIUM 140 mmol/L (135-145); TOTAL IRON BINDING CAPACITY 367 ug/dL (250-450); TRANSFERRIN 262 mg/dL (180-329); TRIGLYCERIDES 79 mg/dL; VLDL CHOLESTEROL 16 mg/dL
[2021-12-23 15:21] LABS: FERRITIN 70.1 ng/mL (23.9-336.2)
== END 2021-12-23 09:07 | disposition home or self-care (01) ==
LOC: LAB.S 09:06
PROVIDERS: ATTEND Internal Medicine
DX: I10 Essential (primary) hypertension (principal); E78.5 Hyperlipidemia, unspecified; E55.9 Vitamin D deficiency, unspecified; D64.9 Anemia, unspecified; N40.0 Benign prostatic hyperplasia without lower urinary tract symptoms; R94.6 Abnormal results of thyroid function studies
CPT/HCPCS: 36415; 80053; 80061; 82306; 82728; 83540; 83721; 84153; 84443; 84466; 85025

== ENCOUNTER 2022-04-08 08:41 | Outpatient (CLI) | payer MEDICARE, MEDICAID ==
[2022-04-08 17:55] LABS: ALBUMIN 4.1 g/dL (3.2-5.5); ALBUMIN/GLOBULIN RATIO 1.6 (1.0-2.2); ALKALINE PHOSPHATASE 59 IU/L (42-121); ALT ALANINE AMINOTRANSFERASE 23 IU/L (10-60); AST ASPARTATE AMINOTRANSFERASE 19 IU/L (10-42); BILIRUBIN,TOTAL 1.1 mg/dL (0.2-1.0); BUN - BLOOD UREA NITROGEN 24 mg/dL (6-20); CALCIUM 9.1 mg/dL (8.5-10.3); CARBON DIOXIDE - CO2 22 mmol/L (21-32); CHLORIDE 99 mmol/L (101-111); CHOL/HDL RATIO 4.5 (<5.0); CHOLESTEROL 200 mg/dL; CREATININE 1.1 mg/dL (0.6-1.2); GFR - MDRD 65 (>89); GLUCOSE 97 mg/dL (70-100); HDL CHOLESTEROL 44 mg/dL; LDL CHOLESTEROL,CALCULATED 134 mg/dL; POTASSIUM 4.3 mmol/L (3.5-5.0); SODIUM 134 mmol/L (135-145); TOTAL PROTEIN 6.7 g/dL (6.7-8.2); TRIGLYCERIDES 112 mg/dL; VLDL CHOLESTEROL 22 mg/dL
[2022-04-08 20:14] LABS: ESTIMATED AVERAGE GLUCOSE 114 mg/dL (70-100); HEMOGLOBIN A1c% 5.6 % (4.27-6.07)
== END 2022-04-08 08:42 | disposition home or self-care (01) ==
LOC: LAB.S 08:41
PROVIDERS: ATTEND Internal Medicine
DX: E78.5 Hyperlipidemia, unspecified (principal); R73.01 Impaired fasting glucose; N40.1 Benign prostatic hyperplasia with lower urinary tract symptoms
CPT/HCPCS: 36415; 80053; 80061; 83036; G0103; 83721; 84153

== ENCOUNTER 2022-05-05 09:32 | Outpatient (CLI) | payer MEDICARE, MEDICAID ==
[~2022-05-05 09:32] MED LIST: GADOBUTROL 10 MMOL/10 ML VIAL ONE
[2022-05-05] MEDS ORDERED: GADOBUTROL 10 MMOL/10 ML VIAL IVP ONE (11:28)
--- NOTE | 2022-05-05 14:01 | MRI Report ---
PROCEDURE: ABDOMEN W/WO INDICATIONS: LIVER NODULE CONTRAST: GADAVIST 8.8 TECHNIQUE: Coronal ultra fast SE, axial 2D spoiled GE in- and [id number]; axial breath-hold T2 fast SE. Dynam ic axial ultra fast GE during the administration of contrast; post-contrast coronal ultra fast GE or 2D spoiled GE with fat saturation from the hepatic dome to the iliac crests. Optional diffusion weig hted imaging and ADC may be performed. COMPARISON: CT 04/30/2020, 03/06/2020 FINDINGS: Image quality: Suboptimal due to metallic artifact from the endovascular stent. Lung bases: No basal pleural effusions. Heart size is normal. Solid organs: Cyst with fluid intensity and no suspicious features along the posterior margin of the right hepatic lobe measuring 2.1 cm. No solid mass detected. Polycystic kidneys, without definite enh ancing mass. Nodes and vessels: Known infrarenal aortic aneurysm is difficult to appreciate due to metallic artifa ct of the endovascular stent. Bowel and peritoneum: Unenhanced bowel loops are normal in caliber. No free fluid. Bones and soft tissues: No ventral hernias. Bone marrow is normal in overall signal. IMPRESSION: 2.1 cm right hepatic cyst without suspicious features, benign. Polycystic kidneys. Reviewed by: Casper Shipley on 05/05/2022 2:00 PM PST Approved by: Casper Shipley on 05/05/2022 2:00 PM PST Station ID: [id number]
--- NOTE | 2022-05-06 11:21 | CT Report ---
PROCEDURE: Low Dose Lung Cancer Screen INDICATIONS: HX OF SMOKING TECHNIQUE: Noncontrast low-dose axial images were acquired from the pulmonary apices to the posterior costophren ic angles. Multiplanar MIP reformats were then reconstructed. For radiation dose reduction, the follo wing was used: automated exposure control, adjustment of mA and/or kV according to patient size. COMPARISON: None. FINDINGS: Image quality: Excellent. Lungs and pleura: Multiple lung nodules are present. Reference nodules are listed in the following: Nodule 1: 4 mm; right upper lobe; series 4 image 152. Nodule 2: 3 mm; right upper lobe; series 4 image 160. Nodule 3: 3 mm; right upper lobe; series 4 image 66. Nodule 4: 3 mm; left major fissure; series 4 image 163. Subpleural scars and atelectasis in lingula. Mediastinum: Heart size is normal. Mild coronary artery calcification. No pericardial effusion. No mediastinal adenopathy by size criteria. Thoracic aorta and central pulmonary arteries are normal i n size. Esophagus is normal in caliber. No hiatal hernia. Bones and chest wall: No suspicious bony lesions. No vertebral body compression fractures. No axil betty or supraclavicular adenopathy by size criteria. The thyroid is enlarged and there are no incide ntal findings. Abdomen: Visualized upper abdomen solid organs and bowel loops appear normal in the absence of contr ast. There is an intraluminal graft in the abdominal aorta. IMPRESSION: 1. Multiple small pulmonary nodules are present. ACR lung RADS category 2. Recommend annual screening chest CT in 12 months. 2. Enlarged thyroid gland. Please correlate with thyroid function tests. Fleischner Society criteria for SOLID lung nodule followup. Nodule size (mm)Low-risk patientHigh-risk patient "d4No follow-up neededFollow-up at 12 mo; if no change, no further follow-up >9-1Cnhqkd-re CT at 12 mo; if no change, no further follow-up needed.Initial follow-up CT at 6-12 mo, then 18-24 mo if no change. >6-8Initial follow-up CT at 6-12 mo, then 18-24 mo if no change. Initial follow-up CT at 3-6 mo, then 9-12 mo and 24 mo if no change. >8Follow-up CT at 3, 9, 24 mo. Or PET and/or biopsy.Same as for low-risk pts. Fleischner Society criteria for SUB-SOLID lung nodule followup. Solitary pure ground-glass nodules 5 mm or lessNo followup needed. >5 mm3 mo follow-up CT to confirm persistence. Then annual CT for 3 years. Part-solid nodules3 mo follow-up CT to confirm persistence. If persistent with solid component <5 mm , annual CT for at least 3 years. If solid component is 5 mm or more, biopsy or surgical resection. Consider PET-CT for lesions > 10 mm. Multiple sub-solid nodules Pure ground glass nodules [address] at 2 and 4 years. Pure ground glass nodules >5 mm without dominant lesion. [address] to confirm persistence, then annual followup CT for at least 3 years. Dominant nodule(s) with part-solid or solid component. [address] to confirm persistence. If persistent, consider biopsy or surgical resection, gricelda if lesions have >5 mm solid component. Reviewed by: Clara Toribio MD on 05/06/2022 11:19 AM PST Approved by: Clara Toribio MD on 05/06/2022 11:19 AM PST Station ID: [id number]
== END 2022-05-05 09:33 | disposition home or self-care (01) ==
LOC: DI 09:32
PROVIDERS: ATTEND Internal Medicine
DX: Z12.2 Encounter for screening for malignant neoplasm of respiratory organs (principal); Z87.891 Personal history of nicotine dependence; R91.8 Other nonspecific abnormal finding of lung field; E01.0 Iodine-deficiency related diffuse (endemic) goiter
CPT/HCPCS: 71271; 74183; A9585

== ENCOUNTER 2022-10-28 14:58 | Outpatient (CLI) | payer MEDICARE, MEDICAID ==
--- NOTE | 2022-10-29 16:52 | Ultrasound Report ---
PROCEDURE: Duplex Lwr Ext Arterial Bilat INDICATIONS: BILATERAL CLAUDICATION TECHNIQUE: Color and pulse Doppler interrogation was performed of both lower extremity arterial systems, with im age documentation. COMPARISON: None FINDINGS: Right lower extremity: Common femoral artery: 160 cm/sec, with triphasic flow. Deep femoral artery: 191 cm/sec, with triphasic flow. Proximal superficial femoral artery: 107 cm/sec, with triphasic flow. Mid superficial femoral artery: 169 cm/sec, with triphasic flow. Distal superficial femoral artery: 127 cm/sec, with triphasic flow. Popliteal artery: 61 cm/sec, with triphasic flow. Posterior tibial artery: 68 cm/sec, with triphasic flow. Anterior tibial artery/dorsalis pedis: 100 cm/sec, with triphasic flow. Quintana-scale imaging description: Moderate diffuse plaque Left lower extremity: Common femoral artery: 89 cm/sec, with biphasic flow. Deep femoral artery: 61 cm/sec, with biphasic flow. Proximal superficial femoral artery: 114 cm/sec, with triphasic flow. Mid superficial femoral artery: 138 cm/sec, with triphasic flow. Distal superficial femoral artery: 73 cm/sec, with triphasic flow. Popliteal artery: 48 cm/sec, with triphasic flow. Posterior tibial artery: 60 cm/sec, with triphasic flow. Anterior tibial artery/dorsalis pedis: 55 cm/sec, with triphasic flow. Quintana-scale imaging description: Moderate diffuse plaque IMPRESSION: No evidence of arterial insufficiency to the bilateral lower extremities. Reviewed by: Dami Proctor MD on 10/29/2022 4:51 PM PDT Approved by: Dami Proctor MD on 10/29/2022 4:51 PM PDT Station ID: [id number]
== END 2022-10-28 14:59 | disposition home or self-care (01) ==
LOC: DI 14:58
PROVIDERS: ATTEND Internal Medicine
DX: I73.9 Peripheral vascular disease, unspecified (principal)
CPT/HCPCS: 93925

== ENCOUNTER 2022-12-29 14:23 | Outpatient (CLI) | payer MEDICARE, MEDICAID ==
--- NOTE | 2022-12-29 17:58 | MRI Report ---
PROCEDURE: LUMBAR SPINE WO INDICATIONS: BACK PAIN TECHNIQUE: Noncontrast sagittal T1 spin echo and T2 fast echo, sagittal STIR, axial T1 and T2 fast spin echo thr ough the lumbar spine. In cases with scoliosis, additional coronal T2 fast spin echo may be performe d. COMPARISON: Correlation is made with CT, 04/30/2020. FINDINGS: Image quality: There is artifact associated with the metallic hardware. Alignment and Curvature: There is mild to moderate dextroconvex lumbar scoliosis. Minimal retrolisth esis can be seen at L1-L2, L2-L3, and L3-L4. Grade 1/2 anterolisthesis is seen at the L5-S1 level. As sociated pars defects are present, which are much better demonstrated on prior CT. Bone Marrow: Marrow is of normal overall signal. No acute vertebral body compression fractures. Spinal Cord: Conus medullaris terminates at the L1 level. Visualized cord demonstrates normal signa l and size. Paraspinous Soft Tissues: No paravertebral masses. Prominent cyst can be seen involving each kidney . There is a known aortobiiliac stent graft, with associated artifact. T12-L1: Moderate loss of disc height and signal are seen. Mild to moderate disc osteophyte complex i s seen, which is eccentric to the left. Mild facet hypertrophy is seen. There is moderate left-sided and [id number] right-sided neuroforaminal narrowing. Mild central canal narrowing is seen. L1-L2: At least moderate loss of disc height and disc signal can be seen. Moderate disc bulge is seen at this level. Mild facet hypertrophy is seen. Associated hypertrophy of the ligamentum flavum can be seen. There is at least moderate right-sided and moderate to severe left-sided neuroforaminal narrowing. Moderate central canal narrowing is seen. L2-L3: Mild loss of disc height and disc signal can be seen on the right side. Moderate disc bulg e is seen at this level. There is a central/right disc osteophyte protrusion. There is at least moder ate bilateral neuroforaminal narrowing. At least moderate central canal narrowing is seen, as on seri es 12 image 21. L3-L4: The disc height is well-preserved. There is loss of disc signal seen. Mild to moderate disc bulge is seen, which is eccentric to the right. There is a central disc protrusion. Mild to moderate facet hypertrophy is seen. There is at least moderate bilateral neuroforaminal narrowing seen, right worse than left. Compression is seen upon the exiting nerve roots. At least moderate central canal na rrowing is seen, as on series 12 image 26. L4-L5: Mild to moderate loss of disc height and disc signal can be seen on the right side. Modera te disc bulge is seen at this level. Moderate to prominent facet hypertrophy is seen at this level. There is at least moderate left-sided and moderate to severe right-sided neuroforaminal narrowing. Co mpression is seen upon the exiting nerve roots. Moderate central canal narrowing is seen. L5-S1: At least moderate loss of disc height and disc signal can be seen. Reactive marrow endplate changes are seen, which are on hypointense on T1-weighted and hyperintense T2-weighted imaging, wi th associated increased STIR signal. These imaging findings are most consistent with endplate edema ( Modic type 1 change). At least moderate disc bulge is seen. Moderate to prominent facet hypertrophy i s seen at this level. Moderate to severe bilateral neural foraminal narrowing can be seen, with assoc iated compression upon the exiting nerve roots. At least moderate central canal narrowing is seen at this level. IMPRESSION: Multiple levels of lumbar spine degenerative change are seen, which are worst inferiorly. Dextroconvex thoracolumbar scoliosis. Grade 1/2 L5-S1 anterolisthesis, with associated pars defects. Moderate to severe bilateral neurofora sanaz narrowing can be seen at this level. Additional findings: Prominent bilateral renal cysts Aortobiiliac stent graft, with associated artifact. Reviewed by: Trace Leon MD on 12/29/2022 4:57 PM AKANA Approved by: Trace Leon MD on 12/29/2022 4:57 PM AKDT Station ID: [id number]
== END 2022-12-29 14:24 | disposition home or self-care (01) ==
LOC: DI 14:23
PROVIDERS: ATTEND Internal Medicine
DX: M47.816 Spondylosis without myelopathy or radiculopathy, lumbar region (principal); M51.36 Other intervertebral disc degeneration, lumbar region; M48.061 Spinal stenosis, lumbar region without neurogenic claudication; M47.817 Spondylosis without myelopathy or radiculopathy, lumbosacral region; M51.37 Other intervertebral disc degeneration, lumbosacral region; M48.07 Spinal stenosis, lumbosacral region; M43.07 Spondylolysis, lumbosacral region; M41.9 Scoliosis, unspecified

== ENCOUNTER 2023-01-05 10:13 | Outpatient (CLI) | payer MEDICARE, MEDICAID ==
[2023-01-05 15:32] LABS: THYROID STIMULATING HORMONE 0.7 uIU/mL (0.34-5.60)
[2023-01-06 05:32] LABS: IMMUNOGLOBULIN A (IGA) 149 mg/dL (61-437); IMMUNOGLOBULIN G (IGG) 881 mg/dL (603-1613); IMMUNOGLOBULIN M (IGM) 31 mg/dL (15-143)
[2023-01-08 16:08] LABS: A/G RATIO 1.5 (0.7-1.7); ALBUMIN 3.8 g/dL (2.9-4.4); ALPHA-1-GLOBULIN 0.2 g/dL (0.0-0.4); ALPHA-2-GLOBULIN 0.6 g/dL (0.4-1.0); BETA GLOBULIN 0.8 g/dL (0.7-1.3); GAMMA GLOBULIN 0.9 g/dL (0.4-1.8); GLOBULIN, TOTAL 2.6 g/dL (2.2-3.9); PROTEIN TOTAL 6.4 g/dL (6.0-8.5)
== END 2023-01-05 10:14 | disposition home or self-care (01) ==
LOC: LAB.S 10:13
PROVIDERS: ATTEND Internal Medicine
DX: Z01.84 Encounter for antibody response examination (principal); G62.9 Polyneuropathy, unspecified
CPT/HCPCS: 36415; 82607; 82784; 84155; 84165; 84443; 86787

== ENCOUNTER 2023-03-04 08:00 | Outpatient (CLI) | payer MEDICARE, MEDICAID | END 2023-03-04 08:01 | disposition home or self-care (01) | LOC: LAB.S 08:00 | PROVIDERS: ATTEND Physician Assistant Medical | DX: J06.9 Acute upper respiratory infection, unspecified (principal) ==

== ENCOUNTER 2023-04-14 14:21 | Outpatient (CLI) | payer MEDICARE, MEDICAID | END 2023-04-14 14:22 | disposition home or self-care (01) | LOC: LAB.S 14:21 | PROVIDERS: ATTEND Urology | DX: N40.1 Benign prostatic hyperplasia with lower urinary tract symptoms (principal); N13.8 Other obstructive and reflux uropathy | CPT/HCPCS: 36415; 84153 ==

== ENCOUNTER 2023-06-12 13:44 | Outpatient (CLI) | payer MEDICARE, MEDICAID ==
--- NOTE | 2023-06-12 15:48 | CT Report ---
PROCEDURE: Lung Cancer Screen INDICATIONS: HISTORY OF SMOKING TECHNIQUE: A CT scan of the chest was performed. Intravenous contrast media was not administered. Images were re corded and evaluated at appropriate window settings. Reformats: axial MIP of the chest, coronal and s agittal. For radiation dose reduction, the following was used: automated exposure control, adjustment of mA and/or kV according to patient size. COMPARISON: 05/05/2022 FINDINGS: Image quality: Diagnostic. Lungs and pleura: No pleural effusions. No pneumothorax. Mild bibasilar atelectasis. Small bilateral pulmonary nodules with index lesions listed below. Stable 2-3 mm right upper lobe nodule (19/series 4) Stable 4 mm right upper lobe nodule (48/series 4) Stable 3 mm right upper lobe nodule (51/series 4) Stable 3 mm left major fissural-based nodule (50/series 4). No new suspicious or enlarging pulmonary nodules. Mediastinum: Heart size is normal. No pericardial effusion. No large vessel abnormality. No mediastin al adenopathy by size criteria. Three vessel coronary artery calcifications. Chest wall and lower neck: Thyroid gland is diffusely enlarged bilaterally without focal measurable n odules seen. No axillary or supraclavicular adenopathy by size. Bones: No aggressive osseous abnormality. No acute compression fracture. Multilevel spondylosis of th e imaged spine. Upper Abdomen: Endovascular stent is in place. Bilateral stents at the origins of the bilateral renal arteries. Redemonstration of polycystic kidneys bilaterally. IMPRESSION: Multiple small bilateral pulmonary nodules measuring up to 4 mm in size. No acute cardiopulmonary abnormalities or acute airspace disease. Mild thyromegaly without focal thyroid nodules. Other chronic findings as above. Lung RAD: 2 - Benign. Recommendation: Continue annual screening in 12 Months with LDCT Non-Lung Significant Findings: Coronary Arterial Calcification - Moderate or Severe. Reviewed by: Marlon Hurst MD on 06/12/2023 3:46 PM PDT Approved by: Marlon Hurst MD on 06/12/2023 3:46 PM PDT Station ID: [id number]
== END 2023-06-12 13:45 | disposition home or self-care (01) ==
LOC: DI 13:44
PROVIDERS: ATTEND Internal Medicine
DX: Z12.2 Encounter for screening for malignant neoplasm of respiratory organs (principal); R91.8 Other nonspecific abnormal finding of lung field; I25.10 Atherosclerotic heart disease of native coronary artery without angina pectoris; E04.9 Nontoxic goiter, unspecified; Z87.891 Personal history of nicotine dependence

== ENCOUNTER 2023-08-25 09:41 | Outpatient (CLI) | payer MEDICARE, MEDICAID ==
[2023-08-25] MEDS ORDERED: iohexoL-300 100 ML VIAL ONE (10:24)
[2023-08-25] MEDS: iohexoL-300 100 ML VIAL IVP ONE (14:06)
--- NOTE | 2023-08-26 09:39 | CT Report ---
PROCEDURE: Angio Abdomen/Pelvis INDICATIONS: AAA CONTRAST: Omni 300 100ml TECHNIQUE: After the administration of intravenous contrast, 2.5 mm thick sections acquired from the diaphragm t o the symphysis. 10 mm maximum-intensity projection (MIP) reformats were then acquired. For radiati on dose reduction, the following was used: automated exposure control, adjustment of mA and/or kV ac cording to patient size. COMPARISON: CTA abdomen and pelvis on April 30, 2020 FINDINGS: Image quality: Excellent. Aorta: Lack of multiphasic imaging limits evaluation for an endoleak. Aortobiiliac stent is intact. Compared to CTA abdomen and pelvis dated April 30, 2020, increased size of infrarenal abdominal aortic aneurysm measuring 10.1 x 9.6 cm (), previously 8.1 x 7.7 cm (). On prior CTA on single phas e imaging, there is the presence of a ill-defined blush in the excluded sac () which is not seen on the current CTA. Bilateral renal artery stents remain patent. . Mesenteric arteries: Celiac trunk, superior and inferior mesenteric arteries appear patent. Right pelvic arteries: The iliac and femoral vessels are patent. Mild atherosclerotic calcification at the common femoral and proximal SFA vessels. Left pelvic arteries: The iliac and femoral vessels are patent. Mild atherosclerotic calcification a t the common femoral and proximal SFA vessels. Similar appearance of the left proximal external iliac artery with possible short segment dissection just below its bifurcation. 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 Dependen t atelectasis. Cardiomegaly. Heart size is normal. Liver and spleen are normal in size and enhancem ent. Gallbladder is unremarkable. Biliary system is non dilated. Pancreas enhances normally. No a drenal nodules. Kidneys are normal in size and enhancement, without hydronephrosis. Multiple cysts i n the bilateral kidneys. Non opacified bowel loops are normal in wall thickness and caliber. No free fluid or air. No retroperitoneal or mesenteric adenopathy. No ventral hernias. No suspicious bony lesions. No vertebral body compression fractures. Moderate right and small left fat-containing ingu inal hernias. Moderate prostatomegaly. Circumferential bladder wall thickening, accounting for underd istention. IMPRESSION: 1.Lack of multiphasic imaging limits evaluation for an endoleak; however, the infrarenal abdominal ao rta has increased in size measuring 10.1 x 9.6 cm, previously 8.1 x [address] dated April 30, 2020. Findings are suspicious for an endoleak. On prior CTA, there is an ill-defined blush in the excluded sac which is not seen on the current CTA. Recommend a multiphasic CTA for further evaluation as well as Vascular Surgery consultation. 2.Iliac vasculature is patent with similar appearance of questionable short segment left external kaya ac artery dissection. 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 3.Moderate prostatomegaly. 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 4.Cardiomegaly. These findings were discussed with Titus Velasquez PA-C on August 26, 2023 at 9:30 AM. Reviewed by: Nisreen Mayfield MD on 08/26/2023 9:38 AM PDT Approved by: Nisreen Mayfield MD on 08/26/2023 9:38 AM PDT Station ID: [id number]
== END 2023-08-25 09:42 | disposition home or self-care (01) ==
LOC: DI 09:41
PROVIDERS: ATTEND Surgery Vascular Surgery
DX: I71.41 Pararenal abdominal aortic aneurysm, without rupture (principal); N40.0 Benign prostatic hyperplasia without lower urinary tract symptoms; I51.7 Cardiomegaly
CPT/HCPCS: 74174; Q9967

== ENCOUNTER 2023-08-25 10:04 | Outpatient (CLI) | payer MEDICARE, MEDICAID ==
[2023-08-25 10:11] LABS: CREATININE 1.2 mg/dL (0.6-1.3)
== END 2023-08-25 10:05 | disposition home or self-care (01) ==
LOC: LAB 10:04
PROVIDERS: ATTEND Physician Assistant
DX: I71.41 Pararenal abdominal aortic aneurysm, without rupture (principal)
CPT/HCPCS: 36415; 82565

== ENCOUNTER 2023-10-28 08:00 | Outpatient (CLI) | payer MEDICARE, MEDICAID | END 2023-10-28 23:59 | disposition home or self-care (01) | LOC: LAB.N 08:00 | PROVIDERS: ATTEND Registered Nurse | DX: R30.0 Dysuria (principal) | CPT/HCPCS: 87077; 87086; 87181 ==

== ENCOUNTER 2023-11-03 08:00 | Outpatient (CLI) | payer MEDICARE, MEDICAID ==
[2023-11-03 19:48] LABS: BILIRUBIN,URINE NEGATIVE (NEGATIVE); GLUCOSE, URINE (UA) NEGATIVE (NEGATIVE); KETONES,URINE (UA) NEGATIVE (NEGATIVE); LEUKOCYTE ESTERASE, URINE NEGATIVE (NEGATIVE); NITRITE,URINE NEGATIVE (NEGATIVE); OCCULT BLOOD,URINE NEGATIVE (NEGATIVE); PH,URINE 5.5 PH (5.0-7.5); PROTEIN,URINE NEGATIVE (NEGATIVE); UROBILINOGEN,URINE 0.2 (NORMAL) E.U./dL (NORMAL)
[2023-11-03 19:57] LABS: AMORPHOUS SEDIMENT,UR Moderate /LPF; BACTERIA,URINE Few /HPF (None Seen); CLARITY,URINE CLOUDY (CLEAR); RBC,URINE 0-5 /HPF (0-5); SQUAMOUS EPITHELIAL CELL,UR FEW Squamous (<= Few); WBC,URINE 0-3 /HPF (0-3)
== END 2023-11-03 23:59 | disposition home or self-care (01) ==
LOC: LAB.S 08:00
PROVIDERS: ATTEND Registered Nurse
DX: R30.0 Dysuria (principal)
CPT/HCPCS: 81001; 87086

== ENCOUNTER 2023-11-20 09:27 | Emergency (ER) | payer MEDICARE, MEDICAID ==
--- NOTE | 2023-11-20 09:46 | ED Physician Documentation ---
PD HPI MALE - Stated complaint Stated Complaint: - Chief complaint Chief Complaint: UTI - History obtained from History obtained from: Patient - History of Present Illness Timing - onset: How many days ago (several days to a week of urine seeming cloudy and some discomfort at times, more consistent the past day. Is concerned about infection as he has outpt repair of AAA scheduled for next Wed (5 days from now) and does not want anything to interrupt that.) Timing - details: Gradual onset, Still present Associated symptoms: Dysuria, Urinary frequency, Hematuria (noted some blood in urine since yesterday.) Review of Systems Constitutional: denies: Fever, Chills GI: denies: Abdominal Pain, Nausea, Vomiting Skin: denies: Rash, Lesions Musculoskeletal: denies: Back pain PD PAST MEDICAL HISTORY - Past Medical History Past Medical History: Yes Cardiovascular: Hypertension, High cholesterol, Other Respiratory: None Neuro: None Endocrine/Autoimmune: None GI: GERD : Benign prostate hypertrophy Psych: Other - Past Surgical History Past Surgical History: Yes General: Appendectomy, Other Cardiovascular: AAA - Present Medications Home Medications: Ambulatory Orders Medication Instructions Recorded Confirmed Ascorbic Acid [Vitamin C] 1,000 mg PO DAILY 05/01/20 05/01/20 Atorvastatin [Lipitor] 10 mg PO DAILY 05/01/20 05/01/20 Cholecalciferol (Vitamin D3) 1,000 unit PO DAILY 05/01/20 05/01/20 [Vitamin D3] Lisinopril [Zestril] 40 mg PO DAILY 05/01/20 05/01/20 Multivit-Min/FA/Lycopen/Lutein 1 tab PO DAILY 05/01/20 05/01/20 [Adults 50 Plus Multivitamin] Omeprazole 40 mg PO BID 05/01/20 05/01/20 Tamsulosin [Flomax] 0.4 mg PO BID 05/01/20 05/01/20 Terazosin HCl [Hytrin] 2 - 4 mg PO QPM 05/01/20 05/01/20 Pnv No.95/Ferrous Fum/Folic AC 1 each PO DAILY #30 tablet 05/02/20 [ Tablet] Sucralfate [Carafate] 1 gm PO QID #120 tablet 05/02/20 Thiamine [Vitamin B-1] 100 mg PO DAILY #30 tablet 05/02/20 chlordiazePOXIDE [Librium] 25 mg PO BID PRN #8 cap 05/02/20 cephALEXin [Keflex] 500 mg PO TID #20 cap 11/20/23 - Allergies Allergies/Adverse Reactions: Allergies Allergy/AdvReac Type Severity Reaction Status Date / Time No Known Drug Allergies Allergy Verified 04/30/20 22:33 - Social History Does the pt smoke?: No Smoking Status: Never smoker Does the pt drink ETOH?: Yes Does the pt have substance abuse?: No - POLST Patient has POLST: No POLST Status: Full Code PD ED PE NORMAL - Vitals Vital signs reviewed: Yes - General General: Alert and oriented X 3, No acute distress (somewhat anxious about his upcoing surgery but not in discomfort from current illness. ), Well developed/nourished - Abdomen Abdomen: Soft, Non tender - Male Male : Deferred - Back Back: No CVA TTP - Derm Derm: Normal color, Warm and dry Results - Vitals Vitals: Vital Signs - 24 hr 11/20/23 11/20/23 09:31 10:48 Temperature 36.8 C 36.4 C L Heart Rate 70 65 Respiratory 16 18 Rate Blood Pressure 149/74 H 138/77 H O2 Saturation 98 98 Oxygen O2 Source Room air - Labs Labs: Microbiology 11/20/23 09:47 Urine Culture - Preliminary Urine,Random Laboratory Tests 11/20/23 09:47 Urine Color YELLOW Urine Clarity CLOUDY Urine pH 6.0 Ur Specific [place] 1.020 Urine Protein 100 H Urine Glucose (UA) NEGATIVE Urine Ketones NEGATIVE Urine Occult Blood MODERATE H Urine Nitrite NEGATIVE Urine Bilirubin NEGATIVE Urine Urobilinogen 0.2 (NORMAL) Ur Leukocyte Esterase LARGE H Urine RBC 11-25 H Urine WBC >25 H Ur Squamous Epith Cells NONE SEEN Urine Bacteria Few Ur Microscopic Review INDICATED Urine Culture Comments INDICATED PD Medical Decision Making - ED course Complexity details: considered differential (symptoms c/w UTI and some blood is common. UA showing c/w UTI. He is concerned about the blood in urine being from his AAA, which I would feel unlikely without abd pain/etc and I discussed that blood with UTI common. He is also concerned that abx would interfere with surgery next week.), d/w patient ED course: I discussed with him that the UTI would be more of a concern with the surgery and not the abx, with certainly choosing abx that would not affect kidney function (so not as likely to choose Bactrim) nor with connective tissue issues (such as quinolone). Rx Keflex for now, liorng culture. He can notify his Vascular surgery office about this today, but I feel myself there is adequate time to treat cystitis over the next 5 days prior to his surgery. Departure - Departure Disposition: Home, Self Care Clinical Impression: UTI (urinary tract infection) Qualifiers: Urinary tract infection type: acute cystitis Hematuria presence: with hematuria Qualified Code(s): N30.01 - Acute cystitis with hematuria Condition: Stable Record reviewed to determine appropriate education?: Yes Instructions: ED UTI Cystitis Male Follow-Up: Andres Bianchi MD [Primary Care Provider] - Prescriptions: cephALEXin [Keflex] 500 mg PO TID #20 cap Comments: Your recent infection was caused by a bacteria called Klebsiella. It was sensitive to the Bactrim antibiotic you were prescribed so it does sound likely that it did clear. The conditions can still be right for development of a recurrent infection or some few resistant germs may have reblossomed. As such would want to go with a different antibiotic. Based on that culture at the time, antibiotics of cephalosporin or quinolones should both be effective in addition to the sulfa-based Bactrim. I am prescribing cephalexin antibiotic. We are going to do another culture of the urine today and if it shows a different germ or sensitivity pattern, we will call you in the next day or 2 and change the antibiotic. Otherwise this should be an appropriate antibiotic. You do have signs of infection on your urine test and blood with that is relatively common, about 1/4-1/3 of the time. Your symptoms do not suggest a w orse cause for the bleeding. I would anticipate the blood in the urine clearing as the infection does over the next few days. Stay well-hydrated. Continue usual medicines. This infection should clear easily in time for your surgery next week. Return if worsening symptoms generally. I sent your prescription to the [facility] in [place]. Discharge Date/Time: 11/20/23 10:55
[2023-11-20 09:54] VITALS: O2SAT 98
[2023-11-20 09:55] LABS: BILIRUBIN,URINE NEGATIVE (NEGATIVE); CLARITY,URINE CLOUDY (CLEAR); GLUCOSE, URINE (UA) NEGATIVE (NEGATIVE); KETONES,URINE (UA) NEGATIVE (NEGATIVE); LEUKOCYTE ESTERASE, URINE LARGE (NEGATIVE); NITRITE,URINE NEGATIVE (NEGATIVE); OCCULT BLOOD,URINE MODERATE (NEGATIVE); PROTEIN,URINE 100 mg/dL (NEGATIVE); UROBILINOGEN,URINE 0.2 (NORMAL) E.U./dL (NORMAL)
[2023-11-20 10:04] LABS: BACTERIA,URINE Few /HPF (None Seen); WBC,URINE >25 /HPF (0-3)
[2023-11-20 10:05] LABS: SQUAMOUS EPITHELIAL CELL,UR NONE SEEN (<= Few)
[2023-11-20] MEDS: cephALEXin 250 MG CAPSULE PO STA (10:41)
[2023-11-20 10:58] VITALS: BP 138/77
== END 2023-11-20 10:55 | disposition home or self-care (01) ==
LOC: ED 09:27
DX: N30.01 Acute cystitis with hematuria (principal); I71.40 Abdominal aortic aneurysm, without rupture, unspecified
CPT/HCPCS: 81001; 87077; 87086; 87181; 99282; 99283; A9270; 81003

== ENCOUNTER 2023-11-23 15:09 | Outpatient (CLI) | payer MEDICARE, MEDICAID | END 2023-11-23 15:10 | disposition home or self-care (01) | LOC: LAB.S 15:09 | PROVIDERS: ATTEND Registered Nurse | DX: R30.0 Dysuria (principal) | CPT/HCPCS: 87086 ==